=== PATIENT | female | born 1930 | race Caucasian/White ===

== ENCOUNTER → 2016-08-28 | Outpatient (CLI) | payer BC ==
[2016-08-28 13:27] LABS: BASO % 1.2 %; BASO ABS # 0.08 K/uL (0-0.2); COMPLETE YES; EOS % 1.7 %; HEMATOCRIT 38.3 % (37-47); IG% 0.3 %; LYMPH % 37.3 %; LYMPH ABS # 2.48 K/uL (1.2-3.4); MEAN CELL VOLUME 88.7 fL (80-100); MEAN CORPUSCULAR HEMOGLOBIN 30.8 pg (25-34); MEAN CORPUSCULAR HGB CONC 34.7 g/dl (32-36); MEAN PLATELET VOLUME 9.6 fL (7.4-10.4); MONO % 7.7 %; NEUT % 51.8 %; PLATELET COUNT 309 K/uL (130-400); RED BLOOD COUNT 4.32 M/uL (4.2-5.4); WHITE BLOOD COUNT 6.64 K/uL (4.8-10.8)
[2016-08-28 13:52] LABS: BLOOD UREA NITROGEN 15 mg/dl (7-18); CALCIUM 8.9 mg/dl (8.5-10.1); CARBON DIOXIDE 28 mmol/L (21-32); CHLORIDE 102 mmol/L (98-107); CREATININE 0.96 mg/dl (0.60-1.20); GLUCOSE 109 mg/dl (70-99); POTASSIUM 4.1 mmol/L (3.5-5.1); SODIUM 138 mmol/L (136-145)
== END | disposition home or self-care (01) ==
LOC: C.LABPBG 12:09
PROVIDERS: ATTEND Internal Medicine Geriatric Medicine
DX: I10 Essential (primary) hypertension (principal); R73.9 Hyperglycemia, unspecified; R10.9 Unspecified abdominal pain

== ENCOUNTER → 2017-04-02 | Outpatient (CLI) | payer BC ==
[2017-04-02 18:38] LABS: LYME DISEASE AB IGG NEG (NEG); LYME DISEASE AB IGM NEG (NEG)
== END | disposition home or self-care (01) ==
LOC: C.LABPBG 12:18
PROVIDERS: ATTEND Internal Medicine Geriatric Medicine
DX: T14.8XXA Other injury of unspecified body region, initial encounter (principal); W57.XXXA Bitten or stung by nonvenomous insect and other nonvenomous arthropods, initial encounter

== ENCOUNTER 2017-06-08 10:53 | Observation (INO) | payer BC ==
[~2017-06-08] VITALS: Ht 157.5 cm; Wt 65.0 kg
[2017-06-08] MEDS ORDERED: LISI-461 PO (11:03)
[2017-06-08] MEDS ORDERED: MULT-506 PO (11:03)
[2017-06-08] MEDS ORDERED: CHOL2000 PO (11:03)
[2017-06-08] MEDS ORDERED: SODIUM CHLORIDE 0.9% 1000ML 1,000 ML IV STA (11:20)
--- NOTE | 2017-06-08 11:41 | EMERGENCY ROOM VISIT NOTE ---
History Report prepared by Bronson: Coy Ward Under the Supervision of: Dr. Ponce Nuñez M.D. First contact with patient: 10:56 Stated Complaint: NEAR SYNCOPE History of Present Illness The patient is an 86 year old female who presents to the Emergency Room with complaints of an episode of near syncope occurring this morning. Per daughter, the patient has had a respiratory infection for the past week. She notes that the patient was feeling better two days ago, but began to feel sick again yesterday and became weak, had diarrhea, a cough, and a decrease in her appetite. She reports that the patient became weak again this morning following a bowel movement. She states that she did not appear to pass out completely, but seemed to be nearly unconscious. She notes that she had to lift the patient from the toilet to lay her down on the bed. She reports that the patient was responsive shorty following the episode but was mumbling her words. She also complains of congestion, neck pain, back discomfort, a mild fever, and a slight headache. The patient denies any chest pain, bloody or black stool, abdominal pain, vision changes, and recent antibiotic use. The patient states that she has a history of high blood pressure. Source of History: patient, family Onset: this morning Position: other (global) Quality: other (near syncope) Timing: other (an episode) Associated Symptoms: + fevers (mild), + headache (slight), + cough, + neck pain, + diarrhea, + weakness, No chest pain, No abdominal pain Note: The patient also had a decrease in her appetite, congestion, and back discomfort. She denies any bloody or black stool and recent vision changes. Review of Systems See HPI for pertinent positives & negatives. A total of 10 systems reviewed and were otherwise negative. Past Medical & Surgical Medical Problems: (1) Hypertension (2) Respiratory infection Old medical records were reviewed. Nurse's notes were reviewed and I agree with. Family History No pertinent family history stated. Social History Marital Status: Housing Status: lives with family Occupation Status: retired Current/Historical Medications Scheduled Cholecalciferol (Vitamin D3), 3 CAP PO DAILY Lisinopril (Zestril), 10 MG PO DAILY Multivitamin (Multivitamin), 1 TAB PO DAILY Allergies Coded Allergies: Cephalexin (Unverified Allergy, Severe, RASH, 06/08/17) Aspirin (Unverified Allergy, Intermediate, CONGESTION, S.O.B, 06/08/17) Ibuprofen (Unverified Allergy, Intermediate, CONGESTION, S.O.B, 06/08/17) Physical Exam Vital Signs Date Time Temp Pulse Resp B/P (MAP) Pulse Ox O2 Delivery O2 Flow Rate FiO2 06/08/17 13:29 99 06/08/17 13:00 99 20 140/87 97 Room Air 06/08/17 11:07 109 06/08/17 11:00 36.7 116 20 161/82 95 Room Air 06/08/17 11:00 95 Room Air Physical Exam General: Non-ill appearing 86 year old female in no acute distress. Mildly hard of hearing. HEENT: Normal cephalic atraumatic. Pupils are equal round and reactive to light. Extraocular movements are intact. Oropharynx is pink with moist mucous membranes. No swelling of the mouth lips or tongue. Neck: Supple with a midline trachea. No meningeal signs or stiffness, no JVD or bruits. No Stridor. Chest: Clear to auscultation bilaterally. No wheezes or rhonchi. No increased work of breathing. Heart: regular rate and rhythm. Abdomen: Soft nontender, nondistended without rebound guarding or rigidity. Extremities: No cyanosis clubbing or edema. No calf tenderness or assymetry Spine/Back. Non tender to palpation. No CVA tenderness Skin: Good turgor without rashes. Neurologic exam: Cranial nerves two through 12 are intact. Motor and sensation are intact and symmetrical throughout. Medical Decision & Procedures ER Provider Diagnostic Interpretation: Radiology results as stated below per my review and radiologist interpretation: CHEST ONE VIEW PORTABLE FINDINGS: The lungs are clear. Cardiac silhouette is normal in size. No pleural effusions. No pneumothorax. IMPRESSION: No acute process. Electronically signed by: Fernando Tyler M.D. 06/08/2017 11:[address] NONCONTRAST Findings: Fluid levels within the ethmoid air cells and left maxillary sinus. Opacification the right maxillary sinus which is partially visualized. The mastoid air cells are clear. The calvarium and skull base are intact. There is no mass, hematoma, midline shift, acute infarct. White matter hypodensity is nonspecific but suggestive of microvascular ischemic change. The ventricles and sulci demonstrate mild age-related involutional changes. Impression: No acute intracranial abnormality. Atrophy and microvascular ischemic changes. Sinus disease as described above. Electronically signed by: Fernando Tyler M.D. 06/08/2017 12:19 PM Laboratory Results 06/08/17 11:11 Red Blood Count 4.78, Mean Corpuscular Volume 87.4, Mean Corpuscular Hemoglobin 30.1, Mean Corpuscular Hemoglobin Concent 34.4, Mean Platelet Volume 10.0, Neutrophils (%) (Auto) 44.1, Lymphocytes (%) (Auto) 45.1, Monocytes (%) (Auto) 9.1, Eosinophils (%) (Auto) 0.9, Basophils (%) (Auto) 0.6, Neutrophils # (Auto) 2.36, Lymphocytes # (Auto) 2.42, Monocytes # (Auto) 0.49, Eosinophils # (Auto) 0.05, Basophils # (Auto) 0.03 06/08/17 11:11 Test 06/08/17 11:11 06/08/17 11:25 06/08/17 11:36 06/08/17 11:47 White Blood Count 5.36 K/uL (4.8-10.8) Red Blood Count 4.78 M/uL (4.2-5.4) Hemoglobin 14.4 g/dL (12.0-16.0) Hematocrit 41.8 % (37-47) Mean Corpuscular Volume 87.4 fL (80-100) Mean Corpuscular Hemoglobin 30.1 pg (25-34) Mean Corpuscular Hemoglobin Concent 34.4 g/dl (32-36) Platelet Count 174 K/uL (130-400) Mean Platelet Volume 10.0 fL (7.4-10.4) Neutrophils (%) (Auto) 44.1 % Lymphocytes (%) (Auto) 45.1 % Monocytes (%) (Auto) 9.1 % Eosinophils (%) (Auto) 0.9 % Basophils (%) (Auto) 0.6 % Neutrophils # (Auto) 2.36 K/uL (1.4-6.5) Lymphocytes # (Auto) 2.42 K/uL (1.2-3.4) Monocytes # (Auto) 0.49 K/uL (0.11-0.59) Eosinophils # (Auto) 0.05 K/uL (0-0.5) Basophils # (Auto) 0.03 K/uL (0-0.2) RDW Standard Deviation 42.6 fL (36.4-46.3) RDW Coefficient of Variation 13.3 % (11.5-14.5) Immature Granulocyte % (Auto) 0.2 % Immature Granulocyte # (Auto) 0.01 K/uL (0.00-0.02) Anion Gap 10.0 mmol/L (3-11) Est Creatinine Clear Calc Drug Dose 41.3 ml/min Estimated GFR () 70.9 Estimated GFR (Non- 61.2 BUN/Creatinine Ratio 15.3 (10-20) Calcium Level 8.5 mg/dl (8.5-10.1) Total Bilirubin 0.4 mg/dl (0.2-1) Direct Bilirubin 0.1 mg/dl (0-0.2) Aspartate Amino Transf (AST/SGOT) 25 U/L (15-37) Alanine Aminotransferase (ALT/SGPT) 28 U/L (12-78) Alkaline Phosphatase 51 U/L (45-117) Total Creatine Kinase 58 U/L (26-192) Creatine Kinase MB 1.2 ng/ml (0.5-3.6) Creatine Kinase MB Ratio 2.1 (0-3.0) Total Protein 7.1 gm/dl (6.4-8.2) Albumin 3.2 gm/dl (3.4-5.0) Lipase 161 U/L (73-393) Thyroid Stimulating Hormone (TSH) 3.580 uIu/ml (0.300-4.500) Influenza Type A Antigen Neg for Influ A (NEG) Influenza Type B Antigen Neg for Influ B (NEG) Bedside Troponin I < 0.030 ng/ml (0-0.045) Bedside Lactic Acid Venous 1.29 mmol/L (0.90-1.70) Laboratory studies as stated above per my review. Medications Administered Medications (Trade) Dose Ordered Sig/Tito Route Start Time Stop Time Status Last Admin Dose Admin Sodium Chloride 1,000 ml @ 999 mls/hr Q1H1M STAT IV 06/08/17 11:20 06/08/17 12:20 DC 06/08/17 11:58 999 MLS/HR Metoprolol Tartrate (Lopressor Tab) 25 mg 1331 ONCE PO 06/08/17 13:31 06/08/17 14:54 DC 06/08/17 15:05 25 MG ECG Indication: syncope Rate (beats per minute): 96 Rhythm: atrial fibrillation Findings: no acute ischemic change, other (septal infarct pattern) Comparison ECG Date: no prior available ED Course 1101: Past medical records reviewed. The patient was evaluated in room C6, and a complete history and physical examination were performed. 1120: Sodium Chloride 1000 ml @ 999 mls/hr IV 1227: Upon reevaluation, the patient is stable. I discussed the results and treatment plan with the patient. She verbalized agreement of the treatment plan. The patient will be evaluated for further management. 1228: I reevaluated and updated the patient. She is resting comfortably. Medical Decision Differential diagnoses include: infection, arrhythmia, electrolyte/metabolic abnormality, neurologic process, and dehydration. This patient comes in as described above. She suffered a syncopal event. She has had URI type symptoms and diarrhea off and on for couple days and daughter found her passed out on the commode. She was minimally responsive for some time and then woke up she says she feels better now and denies any chest pain. IV access established and she was given 1 L IV normal saline bolus. Chest x- ray was unremarkable does not show pneumonia or pneumothorax. Head CT does not show any acute findings. Her blood work is unremarkable. She's had no elevation lactic acid her white count to suggest sepsis. Stool and urine are pending. She does have atrial fibrillation which is rate controlled and apparently new. I talked to family at length and they do not recall any history of this. Given the new onset A. fib and the syncopal episode, I do think she needs to be admitted/observed for for further treatment and evaluation. I have consulted the [facility] hospitalist group to see her in the ER for these measures. Medication Reconcilliation Current Medication List: was personally reviewed by me Blood Pressure Screening Patient's blood pressure: Elevated blood pressure Referred to hospitalist. Consults Time Called: 1225 Consulting Physician: Dr. Gonzales - [place] [facility] [place]ed Call: 1227 Discussed the patient's case. The patient will be evaluated for further management. Impression Primary Impression: Syncope Additional Impression: New onset a-fib Scribe Attestation The scribe's documentation has been prepared under my direction and personally reviewed by me in its entirety. I confirm that the note above accurately reflects all work, treatment, procedures, and medical decision making performed by me. Departure Information Dispostion Being Evaluated By Hospitalist Referrals Ulysses Price M.D. (PCP) Problem Qualifiers
--- NOTE | 2017-06-08 11:42 | DIAGNOSTIC IMAGING REPORT ---
CHEST ONE VIEW PORTABLE HISTORY: Atypical CHEST PAIN COMPARISON: None. FINDINGS: The lungs are clear. Cardiac silhouette is normal in size. No pleural effusions. No pneumothorax. IMPRESSION: No acute process. Electronically signed by: Fernando Tyler M.D. 06/08/2017 11:40 AM Dictated Date/Time: 06/08/2017 11:36 AM
[2017-06-08 11:44] LABS: BASO % 0.6 %; BASO ABS # 0.03 K/uL (0-0.2); COMPLETE YES; EOS % 0.9 %; HEMATOCRIT 41.8 % (37-47); IG% 0.2 %; LYMPH % 45.1 %; LYMPH ABS # 2.42 K/uL (1.2-3.4); MEAN CELL VOLUME 87.4 fL (80-100); MEAN CORPUSCULAR HEMOGLOBIN 30.1 pg (25-34); MEAN CORPUSCULAR HGB CONC 34.4 g/dl (32-36); MONO % 9.1 %; NEUT % 44.1 %; PLATELET COUNT 174 K/uL (130-400); RED BLOOD COUNT 4.78 M/uL (4.2-5.4); WHITE BLOOD COUNT 5.36 K/uL (4.8-10.8)
[2017-06-08 12:02] LABS: BUN/CREATININE RATIO 15.3 (10-20); CALCIUM 8.5 mg/dl (8.5-10.1); CREATININE 0.85 mg/dl (0.60-1.20); POTASSIUM 3.6 mmol/L (3.5-5.1)
[2017-06-08 12:11] LABS: CKMB/CK RATIO 2.1 (0-3.0)
--- NOTE | 2017-06-08 12:21 | DIAGNOSTIC IMAGING REPORT ---
HEAD CT NONCONTRAST CT DOSE: 537.48 mGy.cm HISTORY: weakness, syncope TECHNIQUE: Multiaxial CT images of the head were performed without the use of intravenous contrast. Automated exposure control was utilized for this study. A dose lowering technique was utilized adhering to the principles of ALARA. Comparison: None. Findings: Fluid levels within the ethmoid air cells and left maxillary sinus. Opacification the right maxillary sinus which is partially visualized. The mastoid air cells are clear. The calvarium and skull base are intact. There is no mass, hematoma, midline shift, acute infarct. White matter hypodensity is nonspecific but suggestive of microvascular ischemic change. The ventricles and sulci demonstrate mild age-related involutional changes. Impression: No acute intracranial abnormality. Atrophy and microvascular ischemic changes. Sinus disease as described above. Electronically signed by: Fernando Tyler M.D. 06/08/2017 12:19 PM Dictated Date/Time: 06/08/2017 12:14 PM
[2017-06-08 13:15] LABS: THYROID STIMULATING HORMONE 3.58 uIu/ml (0.300-4.500)
[2017-06-08] MEDS ORDERED: METOPROLOL TARTRATE 50 MG TAB PO ONE (13:31)
[2017-06-08] MEDS ORDERED: ACETAMINOPHEN 325 MG TAB PO PRN (13:45)
[2017-06-08] MEDS ORDERED: POLYETHYLENE (MIRALAX) 17 GM PACK PO PRN (13:45)
[2017-06-08] MEDS ORDERED: ONDANSETRON INJ 2 MG/ML 2 ML VIAL IV PRN (13:45)
[2017-06-08] MEDS ORDERED: ALUMINUM/MAGNESIUM/SIMETH (MAALOX MAX) 30 ML UDC PO PRN (13:45)
[2017-06-08] MEDS ORDERED: MAGNESIUM HYDROXIDE SUSP 30 ML UDC PO PRN (13:45)
--- NOTE | 2017-06-08 13:57 | History and Physical ---
History & Physical Date & Time of Service: Jun 08, 2017 at 13:45 Chief Complaint: Near Syncope Primary Care Physician: Ulysses Price M.D. History of Present Illness Source: patient, family Ms. Orozco is an 86 y/o female with PMHx of HTN, HLD, Hyperglycemia (Diet Managed), and Vit D Deficiency who presents to the ED c/o a syncopal episode starting this AM. She has had URI symptoms including nasal congestion, cough, fever/chills, and diarrhea that has been improving over the past week. Two days ago she reports she was feeling better and daughter states her energy was good and was able to go to doctor appointments and get simple chores done. Yesterday she reports sudden onset of generalized weakness. Patient feels her URI symptoms are still improving but just feels weak. She has not had much of an appetite and states this has been going on awhile due to poor dentition and not being able to wear her partial to chew. She is due to see her dentist in June for multiple teeth extraction. This AM, patient went to the bathroom to move her bowels and her daughter found her conscious but out of it and mumbling her words. Patient is able to recall the events leading up to this and does not feel that she had complete LOC. Daughter states she helped her to the bed and remained responsive. In the ED, patient is afebrile and without leukocytosis. Head CT and CXR unremarkable. Does have tenderness to palpation of L > R maxillary sinuses. EKG reveals new onset A Fib with rates varying between 90-110. Discussed the diagnosis and planned treatment. Patient states she does NOT want a blood thinner but would be willing to discuss options and get more information. Agreeing to utilize therapeutic Lovenox in the interim until final decision made. Is agreeing to utilize medication to control rate and hopefully allow rhythm to convert spontaneously. Would like to see cardiology to discuss further monitoring and management. Past Medical/Surgical History 1. HTN 2. Osteoarthritis 3. Vitamin D Deficiency 4. Hyperglycemia - Diet/Exercise Managed 5. HLD - Diet/Exercise Managed 6. Familial Tremor 7. IBS-D 8. Diverticulosis 9. S/P Cholecystectomy 10. S/P Appendectomy Family History Heart Disease Social History Smoking Status: Never Smoker Smokeless Tobacco Use: No Alcohol Use: none Drug Use: none Marital Status: Housing status: lives with family Occupational Status: retired Multi-Drug Resistant Organisms History of MDRO: No Allergies Coded Allergies: Cephalexin (Unverified Allergy, Severe, RASH, 06/08/17) Aspirin (Unverified Allergy, Intermediate, CONGESTION, S.O.B, 06/08/17) Ibuprofen (Unverified Allergy, Intermediate, CONGESTION, S.O.B, 06/08/17) Home Medications Scheduled Cholecalciferol (Vitamin D3), 3 CAP PO DAILY Lisinopril (Zestril), 10 MG PO DAILY Multivitamin (Multivitamin), 1 TAB PO DAILY Review of Systems Constitutional: + chills (approx. 1 week ago - RESOLVED), + weakness ( generalized), No fever Eyes: + discharge (watery eyes - IMPROVING), No diplopia ENT: + nasal symptoms (congestion), + dental problems (lower teeth chipping and breaking - unable to use partial), + problem reported (facial pressure with R>L; post-nasal drip), No sore throat Respiratory: + cough, + sputum (yellow), No shortness of breath Cardiovascular: No chest pain, No palpitations Abdomen: + diarrhea, No pain, No nausea, No vomiting, No constipation, No GI bleeding Musculoskeletal: No swelling, No calf pain Genitourinary - Female: No dysuria, No urinary frequency Hematologic / Lymphatic: No abnormal bleeding/bruising, No clotting problems Integumentary: No rash Physical Exam Vital Signs Date Time Temp Pulse Resp B/P (MAP) Pulse Ox O2 Delivery O2 Flow Rate FiO2 06/08/17 13:29 99 06/08/17 13:00 99 20 140/87 97 Room Air 06/08/17 11:07 109 06/08/17 11:00 36.7 116 20 161/82 95 Room Air 06/08/17 11:00 95 Room Air General Appearance: WD/WN, no apparent distress Head: normocephalic, atraumatic Eyes: sclerae normal ENT: hearing grossly normal, pharynx normal, + pertinent finding (dentures to upper teeth; poor dentition of lower teeth with chips and missing teeth but gums without erythema; oral mucose dry) Neck: supple, no JVD, trachea midline Respiratory/Chest: lungs clear, normal breath sounds, no respiratory distress, no accessory muscle use Cardiovascular: + systolic murmur (possible faint systolic heard loudest at [place]), + irregularly irregular Abdomen/GI: normal bowel sounds, non tender, soft Extremities/Musculoskelatal: no calf tenderness, no pedal edema Neurologic/Psych: alert, oriented x 3 Skin: normal color, warm/dry, + pertinent finding (skin is very thin) Diagnostics Laboratory Results Results Past 24 Hours Test 06/08/17 11:11 06/08/17 11:20 06/08/17 11:36 06/08/17 11:47 Range/Units White Blood Count 5.36 4.8-10.8 K/uL Red Blood Count 4.78 4.2-5.4 M/uL Hemoglobin 14.4 12.0-16.0 g/dL Hematocrit 41.8 37-47 % Mean Corpuscular Volume 87.4 80-100 fL Mean Corpuscular Hemoglobin 30.1 25-34 pg Mean Corpuscular Hemoglobin Concent 34.4 32-36 g/dl Platelet Count 174 130-400 K/uL Mean Platelet Volume 10.0 7.4-10.4 fL Neutrophils (%) (Auto) 44.1 % Lymphocytes (%) (Auto) 45.1 % Monocytes (%) (Auto) 9.1 % Eosinophils (%) (Auto) 0.9 % Basophils (%) (Auto) 0.6 % Neutrophils # (Auto) 2.36 1.4-6.5 K/uL Lymphocytes # (Auto) 2.42 1.2-3.4 K/uL Monocytes # (Auto) 0.49 0.11-0.59 K/uL Eosinophils # (Auto) 0.05 0-0.5 K/uL Basophils # (Auto) 0.03 0-0.2 K/uL RDW Standard Deviation 42.6 36.4-46.3 fL RDW Coefficient of Variation 13.3 11.5-14.5 % Immature Granulocyte % (Auto) 0.2 % Immature Granulocyte # (Auto) 0.01 0.00-0.02 K/uL Sodium Level 133 136-145 mmol/L Potassium Level 3.6 3.5-5.1 mmol/L Chloride Level 99 98-107 mmol/L Carbon Dioxide Level 24 21-32 mmol/L Anion Gap 10.0 3-11 mmol/L Blood Urea Nitrogen 13 7-18 mg/dl Creatinine 0.85 0.60-1.20 mg/dl Est Creatinine Clear Calc Drug Dose 41.3 ml/min Estimated GFR () 70.9 Estimated GFR (Non- 61.2 BUN/Creatinine Ratio 15.3 10-20 Random Glucose 112 70-99 mg/dl Calcium Level 8.5 8.5-10.1 mg/dl Total Bilirubin 0.4 0.2-1 mg/dl Direct Bilirubin 0.1 0-0.2 mg/dl Aspartate Amino Transf (AST/SGOT) 25 15-37 U/L Alanine Aminotransferase (ALT/SGPT) 28 12-78 U/L Alkaline Phosphatase 51 45-117 U/L Total Creatine Kinase 58 26-192 U/L Creatine Kinase MB 1.2 0.5-3.6 ng/ml Creatine Kinase MB Ratio 2.1 0-3.0 Total Protein 7.1 6.4-8.2 gm/dl Albumin 3.2 3.4-5.0 gm/dl Lipase 161 73-393 U/L Thyroid Stimulating Hormone (TSH) 3.580 0.300-4.500 uIu/ml Bedside Troponin I < 0.030 0-0.045 ng/ml Bedside Lactic Acid Venous 1.29 0.90-1.70 mmol/L Microbiology Results 06/08/17 Blood Culture, Received Pending 06/08/17 Blood Culture, Received Pending 06/08/17 C.difficile Toxin B Gene (PCR), Ordered Pending Diagnostic Radiology CHEST ONE VIEW PORTABLE FINDINGS: The lungs are clear. Cardiac silhouette is normal in size. No pleural effusions. No pneumothorax. IMPRESSION: No acute process. HEAD CT NONCONTRAST Findings: Fluid levels within the ethmoid air cells and left maxillary sinus. Opacification the right maxillary sinus which is partially visualized. The mastoid air cells are clear. The calvarium and skull base are intact. There is no mass, hematoma, midline shift, acute infarct. White matter hypodensity is nonspecific but suggestive of microvascular ischemic change. The ventricles and sulci demonstrate mild age-related involutional changes. Impression: No acute intracranial abnormality. Atrophy and microvascular ischemic changes. Sinus disease as described above. EKG Atrial fibrillation Septal infarct , age undetermined Abnormal ECG No previous ECGs available Impression Assessment and Plan Ms. Orozco is an 86 y/o female with PMHx of HTN, HLD, Hyperglycemia (Diet Managed), and Vit D Deficiency who presents to the ED c/o a syncopal episode starting this AM. She has had URI symptoms including nasal congestion, cough, fever/chills, and diarrhea that has been improving over the past week. New Onset Atrial Fibrillation: Rate Controlled 90-110s - Other than weakness patient is asymptomatic and no feelings of palpitations - unsure of duration of this rhythm - Mildly reduced Na likely from mild dehydration, all electrolytes stable, TSH WNL, possibly induced by acute viral URI with mild dehydration? - Will admit to telemetry for rhythm monitoring and serial cardiac enzymes - denies CP and low suspicion for ACS - Metoprolol 25 mg BID - Discussed anticoagulation - she does NOT want a blood thinner but is willing to discuss and think about it - agrees to therapeutic Lovenox BID - Obtain echo - Consult cardiology - appreciate further recommendations - establishment for ongoing monitoring Syncope: - Given occurrence with a BM this is likely vasovagal increased with mild dehydration but new onset A Fib noted in ED Mild Hyponatremia: - Due to recent illness and limited oral intake - continue NSS at 80 mL/hr and monitor Sinusitis - Likely Viral: - Reporting symptoms improving - daughter had recent illness as well - will continue to monitor - No need for Abx coverage at this time - Can use saline nasal spray Diarrhea: - Continue to monitor - has H/O IBS and was seen recently by Chencho Agosto - daughter states she was prescribed something to help with this...possibly Bentyl. Can be resumed at D/C - Probiotics HTN: - Will hold Lisinopril with the plan to likely D/C on discharge and cover with Metoprolol Code Status: FULL RESUSCITATION DVT Prophylaxis: Therapeutic Lovenox Disposition: - PT/OT evaluatinos - ambulates independently and lives with daughter Level of Care Telemetry Resuscitation Status FULL RESUSCITATION VTE Prophylaxis VTE Risk Assessment Done? Y/N: Yes Risk Level: Moderate Given or contraindicated: Enoxaparin (Lovenox)SQ
[2017-06-08] MEDS ORDERED: SODIUM CHLORIDE 0.65% NA SOLN 45 ML (OCEAN) PRN (14:00)
[2017-06-08] MEDS ORDERED: IV FLUIDS COMPLETED PRN (14:45)
[2017-06-08 15:37] VITALS: BP 128/83; PULSE 146; TEMP 36.7; O2SAT 98; Ht 157.5 cm; Wt 65.0 kg
[2017-06-08 15:46] LABS: URINE APPEARANCE CLEAR (CLEAR); URINE BILIRUBIN NEG (NEG); URINE COLOR YELLOW; URINE EPITHELIAL CELL AUTO 0-5 /lpf (0-5); URINE NITRITE POS (NEG); URINE SPECIFIC GRAVITY 1.009 (1.000-1.030); UROBILINOGEN NEG (NEG)
[2017-06-08 15:48] LABS: MANUAL MICROSCOPIC REQUIRED? NO; REVIEW REQ? NO
[2017-06-08] MEDS: SODIUM CHLORIDE 0.9% 1000ML 1,000 ML IV SCH (16:40)
[2017-06-08 16:45] VITALS: PULSE 62
[2017-06-08 17:00] VITALS: PULSE 65; PULSE 92
[2017-06-08 17:29] LABS: PARTIAL THROMBOPLASTIN RATIO 1.2; PROTHROMBIN TIME (PATIENT) 10.3 SECONDS (9.0-12.0)
[2017-06-08] MEDS: LACTOBACILLUS ACIDOPHILUS (FLORANEX) TAB PO SCH (17:52)
[2017-06-08] MEDS: ENOXAPARIN 80 MG/0.8 ML SYR SQ SCH (17:55)
[2017-06-08 19:21] VITALS: BP 109/67; PULSE 67; TEMP 36.8; O2SAT 96
[2017-06-08] MEDS: METOPROLOL TARTRATE 50 MG TAB PO SCH (20:22)
[2017-06-09 00:49] VITALS: BP 132/74; PULSE 63; TEMP 37.1; O2SAT 95
[2017-06-09 03:49] VITALS: BP 111/57; PULSE 60; TEMP 37.2; O2SAT 97
[2017-06-09] MEDS: SODIUM CHLORIDE 0.9% 1000ML 1,000 ML IV SCH (03:49)
[2017-06-09] MEDS: ENOXAPARIN 80 MG/0.8 ML SYR SQ SCH (05:02)
[2017-06-09 06:54] LABS: HEMATOCRIT 33.4 % (37-47); MEAN CELL VOLUME 87.2 fL (80-100); MEAN CORPUSCULAR HGB CONC 34.4 g/dl (32-36); MEAN PLATELET VOLUME 9.5 fL (7.4-10.4); PLATELET COUNT 159 K/uL (130-400); RED BLOOD COUNT 3.83 M/uL (4.2-5.4); WHITE BLOOD COUNT 5.21 K/uL (4.8-10.8)
[2017-06-09 07:11] LABS: BUN/CREATININE RATIO 17.5 (10-20); CALCIUM 7.5 mg/dl (8.5-10.1); CREATININE 0.66 mg/dl (0.60-1.20); POTASSIUM 3.5 mmol/L (3.5-5.1)
[2017-06-09 07:37] VITALS: BP 155/66; PULSE 64; TEMP 36.9; O2SAT 98
[2017-06-09 07:51] LABS: COMPLETE YES; LYMPH ABS # 1.35 K/uL (1.2-3.4); SMUDGE CELLS PRESENT; VARIANT LYM ABS # 1.93 K/uL
[2017-06-09] MEDS ORDERED: LEVOFLOXACIN / D5W 500 MG in PREMIXED IN D5W 100 ML IV SCH (08:00)
--- NOTE | 2017-06-09 08:16 | ECHOCARDIOGRAM REPORT ---
*NOTICE TO RECEIVING DEMOCRAT AGENCY This information is strictly Confidential and protected under [place] law. [place] law prohibits you from making any further disclosure of this information unless further disclosure is expressly permitted by the written consent of the person to whom it pertains or is authorized by law. A general authorization for the release of medical or other information is not sufficient for this purpose. Hospital accepts no responsibility if the information is made available to any other person, INCLUDING THE PATIENT. Interpretation Summary * Name: YESSICA PAREDES I Study Date: 06/08/2017 02:10 PM BP: 140/87 mmHg * Patient Location: [facility] HR: 94 * : 1930 (M/d/yyyy) Gender: Female Height: 62 in * Age: 86 yrs Ethnicity: [place] Weight: 149 lb * Ordering Physician: Ligia Gonzales * Referring Physician: Self, Referred * Performed By: Kay Pond RCS * * Reason For Study: A-FIB / SYNCOPE * BSA: 1.7 m2 * -- Conclusions -- * 1. Normal left ventricular size with hyperdynamic systolic function. EF > 70%. No regional wall motion abnormalities. Mild to moderate concentric left ventricular hypertrophy. * 2. The left atrium is mildly dilated. * 3. Aortic valve sclerosis mild, without significant aortic valvular stenosis. Trace aortic regurgitation. * 4. Systolic anterior motion of the mitral leaflet with mild mild regurgitation. * 5. Normal estimated right ventricular systolic pressure; 26 mmHg. * 6. No prior study available for comparison. Procedure Details * A complete two-dimensional transthoracic echocardiogram was performed (2D, M-mode, Doppler and color flow Doppler). Left Ventricle * Normal left ventricular size with hyperdynamic systolic function. EF > 70%. No regional wall motion abnormalities. Mild to moderate concentric left ventricular hypertrophy. Right Ventricle * The right ventricle is normal in size and function. Atria * The left atrium is mildly dilated. * Right atrial size is normal. * There is no evidence of atrial septal defect, but resolution does not allow assessment for a patent foramen ovale. Mitral Valve * There is moderate mitral annular calcification. * There is no mitral valve stenosis. * No significant LVOT obstruction. * Systolic anterior motion of the mitral leaflet with mild mild regurgitation. Tricuspid Valve * The tricuspid valve is normal. * There is no tricuspid stenosis. * There is trace tricuspid regurgitation. Aortic Valve * The aortic valve is trileaflet. * Aortic valve sclerosis mild, without significant aortic valvular stenosis. * Trace aortic regurgitation. Pulmonic Valve * The pulmonary valve is inadequately visualized, but the Doppler data is adequate for interpretation. * There is no pulmonic valvular stenosis. * Trace pulmonic valvular regurgitation. Great Vessels * The aortic root is normal size. Pericardium/Pleural * There is no pericardial effusion. Great Vessels * Normal inferior vena cava size and collapsability with sniff indicates a normal right atrial pressure of 3 mmHg MMode 2D Measurements and Calculations IVSd 1.4 cm IVSs 1.3 cm LVIDd 3.5 cm LVIDs 2.0 cm LVPWd 1.2 cm LVPWs 0.93 cm IVS/LVPW 1.2 FS 41.6 % EDV(Teich) 51.0 ml ESV(Teich) 13.5 ml EF(Teich) 73.6 % EDV(cubed) 43.0 ml ESV(cubed) 8.6 ml EF(cubed) 80.1 % % IVS thick -4.87 % % LVPW thick -21.55 % LV mass(C)d 149.0 grams LV mass(C)dI 88.3 grams/m\S\2 LV mass(C)s 58.2 grams LV mass(C)sI 34.5 grams/m\S\2 SV(Teich) 37.6 ml SI(Teich) 22.3 ml/m\S\2 SV(cubed) 34.5 ml SI(cubed) 20.4 ml/m\S\2 Ao root diam 2.7 cm Ao root area 5.5 cm\S\2 LVOT diam 1.8 cm LVOT area 2.6 cm\S\2 Doppler Measurements and Calculations MV E max jase 132.7 cm/sec MV P1/2t max jase 155.3 cm/sec MV P1/2t 74.0 msec MVA(P1/2t) 3.0 cm\S\2 MV dec slope 614.3 cm/sec\S\2 MV dec time 0.28 sec Ao V2 max 174.5 cm/sec Ao max PG 12.3 mmHg Ao max PG (full) 1.6 mmHg JOSEFINA(V,A) 2.5 cm\S\2 JOSEFINA(V,D) 2.5 cm\S\2 AI max jase 401.6 cm/sec AI max PG 64.5 mmHg AI dec slope 185.8 cm/sec\S\2 AI P1/2t 633.1 msec LV V1 max PG 10.6 mmHg LV V1 max 162.1 cm/sec MR max jase 623.1 cm/sec MR max PG 156.4 mmHg TR max jase 241.6 cm/sec RVSP(TR) 26.3 mmHg RAP systole 3.0 mmHg
[2017-06-09] MEDS ORDERED: MULTIVITAMIN TAB PO SCH (09:00)
[2017-06-09] MEDS ORDERED: CHOLECALCIFEROL 1000 INTER.UNIT TAB PO SCH (09:00)
[2017-06-09] MEDS: LACTOBACILLUS ACIDOPHILUS (FLORANEX) TAB PO SCH ×2 (09:59→11:30)
[2017-06-09] MEDS: METOPROLOL TARTRATE 50 MG TAB PO SCH (10:00)
[2017-06-09 11:02] VITALS: BP 174/69; PULSE 65; TEMP 36.8; O2SAT 97
--- NOTE | 2017-06-09 11:59 | CARDIOLOGY CONSULTATION ---
DATE OF CONSULTATION: 06/09/2017 TIME: 11:16 a.m. CONSULTING PHYSICIAN: Dr. Arevalo. REASON FOR CONSULTATION: AFib and near syncopal episode. HISTORY OF PRESENT ILLNESS: Ms. Orozco is a pleasant 86-year-old female with a history significant for hypertension and dyslipidemia, who presented to [facility] on 06/08/2017 with a near syncopal episode. She was incidentally found at that time to be in atrial fibrillation with the heart rate of 97 beats per minute on presenting ECG. She apparently has been experiencing sinusitis type symptoms approximately 1 week ago, including nasal congestion, cough, fevers and chills and daily diarrhea. Two days prior to presentation, she started feeling better until yesterday when she had generalized weakness. She lost a tooth approximately 3 months ago and therefore has not been eating or drinking much. She feels as though she has been getting weaker with decreased appetite, stating that things just do not pace right. She then went to use the restroom to move her bowels and her daughter found her apparently awake, but not exactly with it and she apparently does not recall the event itself. Her son, Kaiser, is present today, recalling his sister's report of yesterday's deep events. The patient apparently did not lose consciousness completely, but was not altogether with it from a mental standpoint during this episode. Today, she feels much better and would like to go home. She was found to be in atrial fibrillation and has undergone an echocardiogram. She does not recall any palpitations yesterday and she spontaneously converted yesterday at 16:44 p.m. She does not recall feeling any different when she spontaneously converted. She does recall having palpitation, described as a fluttering sensation that has occurred intermittently over time, but nothing sustained. She denies melena, hematochezia, hematuria, or other bleeding. She denies chest pain, shortness of breath, actual syncope or history of strokes/TIA. She denies heart failure, diabetes, or atherosclerotic disease. REVIEW OF SYSTEMS: As above and review of systems otherwise unremarkable/negative. PAST MEDICAL HISTORY: 1. Hypertension. 2. Hyperglycemia, but no diabetes. 3. Dyslipidemia. 4. Tremor. 5. IBS. 6. Vitamin D deficiency. 7. Osteoarthritis. 8. Diverticulosis. 9. Status post cholecystectomy. 10. Status post appendectomy. HOME MEDICATIONS: Include, 1. Lisinopril 5 mg daily. 2. Multivitamin. 3. Vitamin D. INPATIENT MEDICATIONS: Include, 1. Lovenox 70 mg subQ q. 12 hours. 2. Levofloxacin 500 mg IV q. 24 hours. 3. Metoprolol tartrate 25 mg p.o. b.i.d. 4. Normal saline 1 liter bolus followed by 80 mL per hour. ALLERGIES AND INTOLERANCES: CEPHALEXIN RESULTED IN RASH. ASPIRIN CAUSED CONGESTION/SHORTNESS OF BREATH. IBUPROFEN CAUSED DIZZINESS. SOCIAL HISTORY: Denies tobacco or alcohol abuse. She is a . She lives with her daughter, who is a local chiropractor. Her son, Kaiser is present at bedside along with her grandson. She has 2 children in total. FAMILY HISTORY: Her son had CAD with PCI diagnosed in his 50s. PHYSICAL EXAMINATION: VITAL SIGNS: Temperature 36.8 degrees, heart rate 65 beats per minute, respiratory rate 18, and blood pressure 174/69 mmHg, which is the highest blood pressure throughout her hospitalization up to this point. She has mostly been normotensive. Oxygen saturation is 97% on room air. Weight 65 kg. GENERAL: No acute distress. She is alert and oriented. HEENT: Anicteric sclerae. NECK: No appreciable JVD. No bruits. Normal carotid upstrokes bilaterally. CARDIAC EXAMINATION: PMI was nonpalpable. There was no ventricular heave. Regular, normal S1 and S2. 2/6 early peaking systolic ejection murmur best heard at the right upper sternal border. No rubs or gallops. LUNGS: Clear to auscultation bilaterally without wheezes, rales or rhonchi. ABDOMEN: Soft, nontender, and nondistended. Normoactive bowel sounds. No bruits noted. EXTREMITIES: 2+ radial pulses bilaterally. 2+ dorsalis pedis pulses bilaterally. Trace bilateral lower extremity edema with varicose veins. No palpable cords. No cyanosis. PSYCHIATRIC: Affect appears appropriate. LABORATORY DATA: White blood cell count is 5.21, hemoglobin 11.5, and platelets 159. Sodium 133, potassium 3.5, BUN 12, creatinine 0.66, and magnesium 2. TSH 3.58. Peak troponin 0.048. INR is 1. Urine culture positive for E. coli. Sensitivities are still pending. Head CT report reviewed. No acute intracranial abnormality. Chest x-ray report reviewed. No acute process reported as per radiology. Chest x-ray image personally reviewed. No obvious infiltrate. Echocardiogram reviewed from 06/09/2017: Normal LV size with hyperdynamic systolic function. EF is greater than 70%. Normal wall motion. Mild to moderate LVH. Mild left atrial dilation. Sclerotic aortic valve with trace AI. Systolic anterior motion of mitral leaflet with mild MR. No significant LVOT obstruction. RVSP is 26 mmHg. Telemetry personally reviewed. Currently sinus rhythm after converting from atrial fibrillation at 16:44 p.m. ECG upon presentation personally reviewed, demonstrating atrial fibrillation at 97 beats per minute. Septal infarct. ECG this morning at 06:40 a.m. demonstrated sinus rhythm at 65 beats per minute. ASSESSMENT AND PLAN: 1. Paroxysmal atrial fibrillation: She appears to be asymptomatic in this regard. She spontaneously converted to sinus rhythm. Her heart rate was reasonably well controlled upon presentation. I agree with beta regine for rate control for recurrences. We discussed anticoagulation for stroke risk reduction in detail. She does have an elevated CHADS-VASc score. She is not interested, but would like to further discuss it with her PCP, Dr. Price. We discussed both warfarin and a new agent. She understands that she has an increased stroke risk if she chooses to abstain from anticoagulation therapy. Would continue rate control strategy for possible future episodes. 2. Mitral valve disorder: She does have systolic anterior motion of mitral leaflet with hyperdynamic systolic function and mild regurgitation. If she would develop hypovolemia and tachycardia with atrial fibrillation, she could potentially develop an obstruction with hemodynamic significance. She did not demonstrate this while in atrial fibrillation during this hospitalization, however. Would continue with beta regine as noted above. Would try to avoid dehydration/hypovolemia. 3. Hypertension: Her blood pressure is becoming more elevated throughout the day. Would consider restarting her JUAN CARLOS inhibitor. We will discuss this with Dr. Levi, primary hospitalist service. 4. Elevated troponin: Her troponin was only slightly elevated at 0.048. This is not diagnostic of myocardial infarction. It could be related to demand ischemia in the setting of hyperdynamic LV systolic function with atrial fibrillation with mildly elevated heart rates at times also in the setting of urinary tract infection. No ischemic evaluation is recommended at this time. She did not present with acute coronary syndrome and denies any anginal symptoms. 5. Urinary tract infection: Her presentation with weakness and near syncope or change in mental status could be secondary to urinary tract infection. Treatment as per primary service. 6. Disposition: The patient's care has been discussed with Dr. Levi of the primary hospitalist service. Please call for any other questions or concerns. At this time, she plans on following up with Dr. Price and if Dr. Price or she wishes to follow up with cardiology, we would be happy to see her in the outpatient setting. Thank for allowing me to participate in the care of Mr. Orozco. Sincerely,
[2017-06-09] MEDS ORDERED: LCTX PO (12:18)
[2017-06-09] MEDS ORDERED: LEVO500T19 PO (12:18)
[2017-06-09] MEDS ORDERED: METO50TA16 PO (12:18)
--- NOTE | 2017-06-09 12:29 | Discharge Instructions ---
Discharge Instructions Date of Service Jun 09, 2017. Admission Reason for Admission: New Onset Of Afib, Syncope Discharge Discharge Diagnosis / Problem: Urinary Tract Infection and Atrial Fibrillation Discharge Goals Goal(s): Decrease discomfort, Improve function, Increase independence Activity Recommendations Activity Limitations: resume your previous activity . Instructions / Follow-Up Instructions / Follow-Up Atrial Fibrillation: - This is a heart rhythm when the top of your heart "shakes" but the bottom of your heart still pumps out the blood to the rest of your body. This rhythm can increase your risk of a stroke due to the blood pooling at the top of your heart when in this rhythm. - You converted out of this rhythm yesterday and are now in a normal rhythm. However, you would have the possibility of going back into this rhythm in the future. - Recommend to discuss blood thinners with your family doctor to help reduce your risk of stroke - You were started on Metoprolol twice a day - this medication helps control your heart rates but is a blood pressure medication and would recommend to watch your blood pressure - You can continue your Lisinopril daily as well. Urinary Tract Infection: - You will be given an antibiotic to take daily for the next 6 days. You had a dose today on 06/09 so you will need to start this tomorrow 06/10 - Continue your probiotic while on antibiotics. As well a prescription will be given but you can use your probiotics that you have at home as well. Weakness: - This may have been a mix of your near-syncopal episode, dehydration, sinus infection, and UTI - this should resolve over the next few days - Recommend to keep yourself hydrated. The best approach is to monitor your urine as you want it to be light/pale yellow which is a sign of good hydration Follow-Up: - Our Dynamometer Tester will be in contact with you to set up an appointment with Dr. Price Current Hospital Diet Patient's current hospital diet: AHA Diet (Heart Healthy) Discharge Diet Recommended Diet: AHA Diet (Heart Healthy) Pending Studies Studies pending at discharge: yes List of pending studies: Urine culture sensitivities and stool cultures Medical Emergencies . Who to Call and When: Medical Emergencies: If at any time you feel your situation is an emergency, please call 911 immediately. . Non-Emergent Contact Non-Emergency issues call your: Primary Care Provider Call Non-Emergent contact if: you have a fever, your pain is concerning you, you have any medication questions . . "Provider Documentation" section prepared by Ligia Gonzales. . VTE Core Measure Inpt VTE Proph given/why not?: Enoxaparin (Lovenox)SQ
[2017-06-09 12:54] VITALS: BP 174/69; PULSE 65; TEMP 36.8; O2SAT 97
--- NOTE | 2017-06-09 13:27 | Discharge Summary ---
Discharge Summary Date of Service Jun 09, 2017. Discharge Summary Admission Date: Jun 08, 2017 at 13:45 Discharge Date: Jun 09, 2017 Discharge Disposition: Home Principal Diagnosis: Atrial Fibrillation with UTI and URI Problems/Secondary Diagnoses: 1. HTN 2. Osteoarthritis 3. Vitamin D Deficiency 4. Hyperglycemia - Diet/Exercise Managed 5. HLD - Diet/Exercise Managed 6. Familial Tremor 7. IBS-D 8. Diverticulosis 9. S/P Cholecystectomy 10. S/P Appendectomy 11. Mild to moderate concentric left ventricular hypertrophy. 12.Trace aortic regurgitation. 13. mild mild regurgitation Procedures: HEAD CT NONCONTRAST Findings: Fluid levels within the ethmoid air cells and left maxillary sinus. Opacification the right maxillary sinus which is partially visualized. The mastoid air cells are clear. The calvarium and skull base are intact. There is no mass, hematoma, midline shift, acute infarct. White matter hypodensity is nonspecific but suggestive of microvascular ischemic change. The ventricles and sulci demonstrate mild age-related involutional changes. Impression: No acute intracranial abnormality. Atrophy and microvascular ischemic changes. Sinus disease as described above. CHEST ONE VIEW PORTABLE FINDINGS: The lungs are clear. Cardiac silhouette is normal in size. No pleural effusions. No pneumothorax. IMPRESSION: No acute process. ECHO: 1. Normal left ventricular size with hyperdynamic systolic function. EF > 70%. No regional wall motion abnormalities. Mild to moderate concentric left ventricular hypertrophy. * 2. The left atrium is mildly dilated. * 3. Aortic valve sclerosis mild, without significant aortic valvular stenosis. Trace aortic regurgitation. * 4. Systolic anterior motion of the mitral leaflet with mild mild regurgitation. * 5. Normal estimated right ventricular systolic pressure; 26 mmHg. * 6. No prior study available for comparison. Consultations: 1. Cardiology Medication Reconciliation New Medications: Levofloxacin (Levaquin) 500 Mg Tab 1 TAB PO DAILY for 6 Days, #6 TAB You had a dose today on 06/09. Start on 06/10 Lactobacillus Acidophilus (Floranex) 1 Tab Tab 4 TAB PO TIDM for 10 Days, TAB Metoprolol Tartrate (Lopressor) (Lopressor) 50 Mg Tab 25 MG PO BID for 30 Days, #30 TAB Continued Medications: Cholecalciferol (Vitamin D3) 2,000 Unit Cap 3 CAP PO DAILY for 30 Days, #90 CAP 3 Refills Lisinopril (Zestril) 10 Mg Tab 5 MG PO DAILY, TAB Multivitamin (Multivitamin) Tab 1 TAB PO DAILY, TAB Discharge Exam Review of Systems: Constitutional: No fever, No chills, No weakness ENT: + nasal symptoms (improving), No sore throat Respiratory: + cough, + sputum, No shortness of breath Cardiovascular: No chest pain Abdomen: No pain, No nausea, No vomiting, No diarrhea, No constipation, No GI bleeding Musculoskeletal: No swelling, No calf pain Genitourinary - Female: No dysuria, No urinary frequency Hematologic / Lymphatic: No abnormal bleeding/bruising Integumentary: No rash Physical Exam: General Appearance: WD/WN, no apparent distress Eyes: sclerae normal Neck: supple, no JVD, trachea midline Respiratory/Chest: lungs clear, normal breath sounds, no respiratory distress, no accessory muscle use Cardiovascular: regular rate, rhythm Abdomen / GI: normal bowel sounds, non tender, soft Extremities: no calf tenderness, no pedal edema Neurologic/Psychiatric: alert, oriented x 3 Skin: normal color, warm/dry Hospital Course ADMISSION: Ms. Orozco is an 86 y/o female with PMHx of HTN, HLD, Hyperglycemia (Diet Managed), and Vit D Deficiency who presents to the ED c/o a syncopal episode starting this AM. She has had URI symptoms including nasal congestion, cough, fever/chills, and diarrhea that has been improving over the past week. Two days ago she reports she was feeling better and daughter states her energy was good and was able to go to doctor appointments and get simple chores done. Yesterday she reports sudden onset of generalized weakness. Patient feels her URI symptoms are still improving but just feels weak. She has not had much of an appetite and states this has been going on awhile due to poor dentition and not being able to wear her partial to chew. She is due to see her dentist in June for multiple teeth extraction. This AM, patient went to the bathroom to move her bowels and her daughter found her conscious but out of it and mumbling her words. Patient is able to recall the events leading up to this and does not feel that she had complete LOC. Daughter states she helped her to the bed and remained responsive. In the ED, patient is afebrile and without leukocytosis. Head CT and CXR unremarkable. Does have tenderness to palpation of L > R maxillary sinuses. EKG reveals new onset A Fib with rates varying between 90-110. Discussed the diagnosis and planned treatment. Patient states she does NOT want a blood thinner but would be willing to discuss options and get more information. Agreeing to utilize therapeutic Lovenox in the interim until final decision made. Is agreeing to utilize medication to control rate and hopefully allow rhythm to convert spontaneously. Would like to see cardiology to discuss further monitoring and management. HOSPITAL COURSE: Ms. Orozco was admitted for new onset Atrial Fibrillation. She was reporting generalized weakness that may have been A Fib vs Dehydration vs URI vs UTI. She has had no further pre-syncopal episodes which may have been vasovagal. She has an E. coli UTI that is pending sensitivities She converted to NSR on 06/08 around 1645 and has remained in NSR. She was started on Metoprolol 25 mg BID and will continue Lisinopril 5 mg daily. Echo reveals hyperdynamic EF but no mention of apical thrombus. She was started on Levaquin 500 mg daily for UTI and will complete a 7 day course. She is ambulating without difficulty and reporting improvement in generalized weakness. She has opted to not utilize anticoagulation at this time and this was discussed by multiple providers. She would like to discuss anticoagulation with Dr. Price. CHADsVASc is 4+. Total Time Spent: Greater than 30 minutes This includes examination of the patient, discharge planning, medication reconciliation, and communication with other providers. Discharge Instructions Please refer to the electronic Patient Visit Report (Discharge Instructions) for additional information. Additional Copies To Ulysses Price M.D. Reviewed: Pt Seen/Exam by Me History Physician Dye Colorist Dyer Supervision Note: I interviewed and examined the patient. Discussed with SADIA Gonzales and agree with findings and plan as documented in the note. Any exceptions or clarifications are listed here: Patient feeling very well today. She converted spontaneously to normal sinus rhythm overnight and remains in normal sinus rhythm. She no longer feels weak or lightheaded. She has been ambulating and feels well enough to go home. She denies chest pain or shortness of breath. I discussed the case with cardiology saw her today. The patient prefers to discuss anticoagulation with her PCP prior to commencing. She denies abdominal pain, denies any further diarrhea, denies any urinary symptoms that are abnormal. Vitals and telemetry reviewed No acute distress, alert awake oriented 3 Regular rate and rhythm, no murmurs Rubs Lungs Clear to Auscultation Bilaterally, No Wheezes Crackles or Rhonchi Abdomen Positive Bowel Sounds Soft Nontender Nondistended Extremities No Edema 86-year-old female with a history of hypertension, here with new onset atrial fibrillation and near-syncope after recent viral syndrome with URI and GI symptoms. She also presents with a UTI. Her symptoms are now completely resolved with spontaneous conversion to normal sinus rhythm. She was seen in consultation by cardiology and started on metoprolol which can be continued after discharge. She is to follow-up with her PCP to further discuss starting anticoagulation with one of the NOAC drugs. She can follow up with [facility] cardiology if she desires, but otherwise can continue follow-up for these conditions with her PCP. She is stable for discharge to finish out a course of Levaquin. It is noted that her urine culture and final blood cultures were not completed at the time of discharge. She never had any signs of sepsis and it is unlikely that her blood cultures will grow out bacteria. The PCP should please follow up on the final results of these cultures at the time of follow-up. Documented By: Olinda Levi
== END 2017-06-09 15:27 | disposition home or self-care (01) ==
LOC: EDBD 10:53 → C.EDC 10:54 → C.2T 13:45 → ENRESERV 14:12
PROVIDERS: ADMIT Internal Medicine; ATTEND Family Medicine
DX: I48.91 Unspecified atrial fibrillation (principal); N39.0 Urinary tract infection, site not specified; J06.9 Acute upper respiratory infection, unspecified; I10 Essential (primary) hypertension; Z79.899 Other long term (current) drug therapy; E78.5 Hyperlipidemia, unspecified; E55.9 Vitamin D deficiency, unspecified; M19.90 Unspecified osteoarthritis, unspecified site; R73.9 Hyperglycemia, unspecified; G25.0 Essential tremor; K58.9 Irritable bowel syndrome, unspecified; K57.90 Diverticulosis of intestine, part unspecified, without perforation or abscess without bleeding; I51.7 Cardiomegaly; I35.1 Nonrheumatic aortic (valve) insufficiency

== ENCOUNTER 2017-09-23 19:07 | Inpatient (IN) | payer BC, OTHER ==
[~2017-09-23] VITALS: Ht 157.5 cm; Wt 60.9 kg
[~2017-09-23 19:07] MED LIST: CHOL2000 PO; LCTX PO; LISI-461 PO; METO50TA16 PO; MULT-506 PO
[2017-09-23] MEDS ORDERED: TROPICAMIDE 0.5% OP SOLN 15 ML BTL OP ONE (20:00)
[2017-09-23] MEDS ORDERED: OPTIRAY 320 IV PRN (20:15)
[2017-09-23 20:18] LABS: HEMATOCRIT 37.1 % (37-47); HEMOGLOBIN 12.9 g/dL (12.0-16.0); MEAN CELL VOLUME 86.9 fL (80-100); MEAN CORPUSCULAR HEMOGLOBIN 30.2 pg (25-34); MEAN CORPUSCULAR HGB CONC 34.8 g/dl (32-36); MEAN PLATELET VOLUME 9.3 fL (7.4-10.4); PLATELET COUNT 331 K/uL (130-400); RED CELL DISTRIBUTION WIDTH CV 12.9 % (11.5-14.5); RED CELL DISTRIBUTION WIDTH SD 41.4 fL (36.4-46.3)
[2017-09-23 20:41] LABS: ALBUMIN 3.7 gm/dl (3.4-5.0); CALCIUM 8.8 mg/dl (8.5-10.1); CREATININE 0.92 mg/dl (0.60-1.20); POTASSIUM 3.8 mmol/L (3.5-5.1)
[2017-09-23 21:18] LABS: TOTAL PROTEIN 8.1 gm/dl (6.4-8.2)
[2017-09-23] MEDS ORDERED: METHYLPREDNISOLONE 125 MG VIAL IV STA (21:35)
[2017-09-23] MEDS ORDERED: METOPROLOL TARTRATE 25 MG TAB PO STA (21:36)
--- NOTE | 2017-09-23 21:57 | DIAGNOSTIC IMAGING REPORT ---
CT OF THE ABDOMEN AND PELVIS WITH CONTRAST CLINICAL HISTORY: Abdominal pain. COMPARISON STUDY: CT of the abdomen and pelvis September 13, 2015. TECHNIQUE: Following IV administration of 116 mL of Optiray-320, axial images of the abdomen and pelvis were obtained from the lung bases to the proximal femurs. Images were reviewed in the axial, sagittal, and coronal planes. IV contrast was administered without complication. A dose lowering technique was utilized adhering to the principles of ALARA. CT DOSE: 277.97 mGy.cm FINDINGS: The heart is moderately enlarged. The liver, spleen, adrenal glands, kidneys and pancreas are unremarkable. There is extensive atherosclerotic plaque of the abdominal aorta which is ectatic, measuring up to 2.7 cm. No pneumatosis, free air or portal venous gas is present. There is no evidence for a bowel obstruction. There is severe pancolonic diverticulosis. Note is made of mild infiltration and wall thickening of the mid sigmoid colon. There is no free air or abscess. No lymphadenopathy is present. There are no suspicious osseous lesions. IMPRESSION: Mild pericolonic infiltration and wall thickening of the mid descending colon suggestive of acute diverticulitis. No free air or abscess. Severe pancolonic diverticulosis. A follow-up CT in one month is recommended to exclude the less likely possibility of an underlying mucosal lesion. Electronically signed by: Jacob Carr M.D. 09/23/2017 9:56 PM Dictated Date/Time: 09/23/2017 9:50 PM
[2017-09-23] MEDS ORDERED: LISI-729 PO (22:15)
[2017-09-23] MEDS ORDERED: METO25TA56 PO (22:17)
[2017-09-23] MEDS ORDERED: MISCCAP80 PO (22:18)
[2017-09-23] MEDS ORDERED: ASPI81TA28 PO (22:19)
[2017-09-23] MEDS ORDERED: PSYL0.527 PO (22:28)
[2017-09-23] MEDS ORDERED: BUSP5TAB59 PO (22:30)
[2017-09-23] MEDS ORDERED: DICY10CA12 PO (22:32)
[2017-09-23] MEDS ORDERED: ALUMINUM/MAGNESIUM/SIMETH (MAALOX MAX) 30 ML UDC PO PRN (23:00)
[2017-09-23] MEDS ORDERED: NITROGLYCERIN 0.4 MG SL PER TAB CHARGE SL PRN (23:00)
[2017-09-23] MEDS ORDERED: MAGNESIUM HYDROXIDE SUSP 30 ML UDC PO PRN (23:00)
[2017-09-23] MEDS ORDERED: ACETAMINOPHEN 325 MG TAB PO PRN (23:00)
[2017-09-23] MEDS ORDERED: ONDANSETRON 8MG OD TAB PO PRN (23:00)
[2017-09-23] MEDS ORDERED: PIPERACILL/TAZOBAC CONSULT ACTIVE PRN (23:00)
--- NOTE | 2017-09-23 23:01 | History and Physical ---
History & Physical Date & Time of Service: Sep 23, 2017 at 23:01 Chief Complaint: Loss Sight In Left Eye, Stomach Pains Primary Care Physician: Ulysses Price M.D. History of Present Illness Source: patient, family The patient is an 86-year-old female who presents to the emergency department with complaint of sudden loss of vision approximately 10 AM this morning. She also reports left lower quadrant pain similar to diverticulitis episodes in the past as well. She also reports feeling generally unwell, but has no specific complaints otherwise. Past Medical/Surgical History Medical Problems: (1) Afib (2) Diverticulitis (3) Hypertension (4) New onset a-fib (5) NSTEMI, initial episode of care (6) Respiratory infection (7) Syncope (8) Vision loss Surgical Problems: (1) History of cataract surgery Family History Heart Disease Social History Smoking Status: Never Smoker Smokeless Tobacco Use: No Alcohol Use: none Drug Use: none Marital Status: Housing status: lives with family Occupational Status: retired Immunizations History of Influenza Vaccine: Unknown History of Tetanus Vaccine?: Unknown History of Pneumococcal: Unknown History of Hepatitis B Vaccine: Unknown Allergies Coded Allergies: Cephalexin (Unverified Allergy, Severe, RASH, 06/08/17) Ibuprofen (Unverified Allergy, Intermediate, CONGESTION, S.O.B, 06/08/17) Home Medications Scheduled Aspirin (Aspirin Ec), 81 MG PO DAILY Cholecalciferol (Vitamin D3), 6,000 UNITS PO DAILY Dicyclomine Hcl (Dicyclomine Hcl), 10 MG PO BID Lisinopril (Zestril), 5 MG PO DAILY Metoprolol Tartrate (Lopressor) (Lopressor), 25 MG PO BID Multivitamin (Multivitamin), 1 TAB PO DAILY Probiotic Product (Probiotic), 1 CAP PO DAILY Psyllium (Fiber Laxative), 0.52 CAP PO DAILY Scheduled PRN Buspirone Hcl (Buspirone Hcl), 5 MG PO DAILY PRN for Anxiety Review of Systems The patient denies chest pain, palpitations, shortness of breath, dyspnea on exertion, cough, lower extremity swelling, sore throat, fevers, chills, sweats, nausea, vomiting, diarrhea , constipation, abdominal pain, pelvic pain, blood in urine or stool, dysuria, urinary frequency or urgency, lightheadedness , dizziness, loss of consciousness, rash, abnormal bruising or bleeding, focal weakness, numbness or tingling in arms or legs, back or neck pain, or night sweats. The review of systems is otherwise negative other than for that already noted above, and at least 10 systems have been reviewed. Physical Exam Vital Signs Date Time Temp Pulse Resp B/P (MAP) Pulse Ox O2 Delivery O2 Flow Rate FiO2 09/23/17 22:43 75 18 211/90 96 Room Air 09/23/17 20:58 75 18 213/90 97 Room Air 09/23/17 19:20 36.7 77 16 173/82 97 Room Air The patient is awake, alert and oriented 3, well developed and well nourished, normocephalic and atraumatic, lying in bed and in no acute distress. HEENT--PERRL, EOMI, mucous membranes and oropharynx dry. Ophthalmoscopic examination--right eye normal-appearing optic nerve and fundus. Left eye with pale fundus, severely narrowed arterioles. Neck--supple. No JVD. No bruits. Thyroid normal, trachea midline, no adenopathy. Heart--normal S1 and S2. No murmurs, rubs or gallops. Lungs--clear bilaterally, no respiratory distress, no accessory muscle use. Abdomen--normal bowel sounds and soft. Mild tenderness in left lower quadrant. Nondistended. Extremities--no cyanosis or clubbing. No edema. There are good distal pulses b/ l. Dermatologic--normal skin turgor, normal color, no abnormal lymph nodes, no rash. Neurologic--cranial nerves II through XII grossly intact. Rheumatologic--normal range of motion. Psychiatric--normal affect. Diagnostics Laboratory Results Results Past 24 Hours Test 09/23/17 19:55 09/23/17 21:41 Range/Units White Blood Count 10.70 4.8-10.8 K/uL Red Blood Count 4.27 4.2-5.4 M/uL Hemoglobin 12.9 12.0-16.0 g/dL Hematocrit 37.1 37-47 % Mean Corpuscular Volume 86.9 80-100 fL Mean Corpuscular Hemoglobin 30.2 25-34 pg Mean Corpuscular Hemoglobin Concent 34.8 32-36 g/dl RDW Standard Deviation 41.4 36.4-46.3 fL RDW Coefficient of Variation 12.9 11.5-14.5 % Platelet Count 331 130-400 K/uL Mean Platelet Volume 9.3 7.4-10.4 fL Erythrocyte Sedimentation Rate 66 0-21 mm/hr Sodium Level 129 136-145 mmol/L Potassium Level 3.8 3.5-5.1 mmol/L Chloride Level 96 98-107 mmol/L Carbon Dioxide Level 25 21-32 mmol/L Anion Gap 8.0 3-11 mmol/L Blood Urea Nitrogen 13 7-18 mg/dl Creatinine 0.92 0.60-1.20 mg/dl Est Creatinine Clear Calc Drug Dose 36.4 ml/min Estimated GFR () 64.4 Estimated GFR (Non- 55.6 BUN/Creatinine Ratio 14.5 10-20 Random Glucose 94 70-99 mg/dl Calcium Level 8.8 8.5-10.1 mg/dl Total Bilirubin 0.4 0.2-1 mg/dl Direct Bilirubin 0.1 0-0.2 mg/dl Aspartate Amino Transf (AST/SGOT) 24 15-37 U/L Alanine Aminotransferase (ALT/SGPT) 17 12-78 U/L Alkaline Phosphatase 58 45-117 U/L Troponin I 2.490 0-0.045 ng/ml C-Reactive Protein 1.93 0-0.29 mg/dl Total Protein 8.1 6.4-8.2 gm/dl Albumin 3.7 3.4-5.0 gm/dl Lipase 172 73-393 U/L Urine Color YELLOW Urine Appearance CLOUDY CLEAR Urine pH 6.0 4.5-7.5 Urine Specific [place] 1.016 1.000-1.030 Urine Protein NEG NEG Urine Glucose (UA) NEG NEG Urine Ketones NEG NEG Urine Occult Blood NEG NEG Urine Nitrite NEG NEG Urine Bilirubin NEG NEG Urine Urobilinogen NEG NEG Urine Leukocyte Esterase MODERATE NEG Urine WBC (Auto) 5-10 0-5 /hpf Urine RBC (Auto) 0-4 0-4 /hpf Urine Hyaline Casts (Auto) 1-5 0-5 /lpf Urine Epithelial Cells (Auto) 20-30 0-5 /lpf Urine Bacteria (Auto) NEG NEG Diagnostic Radiology Patient Name: YESSICA PAREDES I Unit Number: [id number] Dictated: 09/23/172149 Transcribed: 09/23/172149 JA Printed Date/Time: [~ rep prt dt]/[~ rep prt tm] [~ rep ct labl] - [~ rep ct ivnm] [facility] [place] [address] Dictated: 09/23/172149 Transcribed: 09/23/172149 JA Printed Date/Time: [~ rep prt dt]/[~ rep prt tm] [~ rep ct labl] - [~ rep ct ivnm] [~ rep ct add3]] CT OF THE ABDOMEN AND PELVIS WITH CONTRAST CLINICAL HISTORY: Abdominal pain. COMPARISON STUDY: CT of the abdomen and pelvis September 13, 2015. TECHNIQUE: Following IV administration of 116 mL of Optiray-320, axial images of the abdomen and pelvis were obtained from the lung bases to the proximal femurs. Images were reviewed in the axial, sagittal, and coronal planes. IV contrast was administered without complication. A dose lowering technique was utilized adhering to the principles of ALARA. CT DOSE: 277.97 mGy.cm FINDINGS: The heart is moderately enlarged. The liver, spleen, adrenal glands, kidneys and pancreas are unremarkable. There is extensive atherosclerotic plaque of the abdominal aorta which is ectatic, measuring up to 2.7 cm. No pneumatosis, free air or portal venous gas is present. There is no evidence for a bowel obstruction. There is severe pancolonic diverticulosis. Note is made of mild infiltration and wall thickening of the mid sigmoid colon. There is no free air or abscess. No lymphadenopathy is present. There are no suspicious osseous lesions. IMPRESSION: Mild pericolonic infiltration and wall thickening of the mid descending colon suggestive of acute diverticulitis. No free air or abscess. Severe pancolonic diverticulosis. A follow-up CT in one month is recommended to exclude the less likely possibility of an underlying mucosal lesion. Electronically signed by: Jacob Carr M.D. 09/23/2017 9:56 PM Dictated Date/Time: 09/23/2017 9:50 PM The status of this report is Signed. Draft = Not yet reviewed or approved by Radiologist. Signed = Reviewed and approved by Radiologist. <AttendingPhy></AttendingPhy> <FamilyPhy>Ulysses Price M.D.</FamilyPhy> < PrimaryPhy>Ulysses Price M.D.</PrimaryPhy> <UnitNumber>[id number]</UnitNumber > <VisitNumber>[id number]</VisitNumber> <PatientName>YESSICA PAREDES I</ PatientName> <DateOfBirth>1930</DateOfBirth> <Location>C.EDB</Location> < ServiceDate>09/23/17</ServiceDate> <MNE>ESINDI</MNE> <OrderingPhy>Virgilio Cornejo M.D.</OrderingPhy> <OrderingPhyMNE>f rep ord dr lr</OrderingPhyMNE> < DictatingPhyMNE>f rep dict dr lr</DictatingPhyMNE> <CCListMNE>f rep ct mne</ CCListMNE> <AdmittingPhyMNE>f pt admit dr lr</AdmittingPhyMNE> <AttendingPhyMNE >f pt attend dr lr</AttendingPhyMNE> <ConsultingPhyMNE>f pt consult dr lr</ConsultingPhyMNE> <FamilyPhyMNE>f pt fam dr lr</FamilyPhyMNE> <OtherPhyMNE>f pt other dr lr</OtherPhyMNE> < PrimaryPhyMNE>f pt prim care dr lr</PrimaryPhyMNE> <ReferringPhyMNE>f pt referring dr lr</ReferringPhyMNE> Patient Name: YESSICA PAREDES I Unit Number: [id number] Dictated: 09/23/[id number] Transcribed: 09/23/172258 KELLIE Printed Date/Time: [~ rep prt dt]/[~ rep prt tm] [~ rep ct labl] - [~ rep ct ivnm] [facility] [place] [address] Dictated: 09/23/[id number] Transcribed: 09/23/172258 KELLIE Printed Date/Time: [~ rep prt dt]/[~ rep prt tm] [~ rep ct labl] - [~ rep ct ivnm] [~ rep ct add3]] CT OF THE HEAD WITHOUT CONTRAST CLINICAL HISTORY: Left eye vision loss. COMPARISON STUDY: Head CT June 08, 2017. CT DOSE: 537.48 mGy.cm TECHNIQUE: Helical axial images of the head were obtained without IV contrast. Automated exposure control was utilized for the study. A dose lowering technique was utilized adhering to the principles of ALARA. FINDINGS: Intravenous contrast is from recent contrast-enhanced CT of the abdomen and pelvis. No acute intracranial hemorrhage, midline shift or mass effect is present. Ventricular system is unchanged. Basilar cisterns are patent. There are no extra axial collections. White matter hypodensity suggests small vessel disease. These are unchanged. There are no findings to suggest acute dural sinus thrombosis or acute territorial infarct. Visualized portions of the right maxillary sinus are opacified. Left maxillary sinus air-fluid level is partially imaged. Anterior right ethmoid air cells and right frontal sinuses are opacified. Similar findings were shown on exam of June 08, 2017. IMPRESSION: 1. No acute intracranial findings. 2. Paranasal sinus disease which is similar to exam of June 08, 2017. Electronically signed by: Jacob Carr M.D. 09/23/2017 11:02 PM Dictated Date/Time: 09/23/2017 10:59 PM The status of this report is Signed. Draft = Not yet reviewed or approved by Radiologist. Signed = Reviewed and approved by Radiologist. <AttendingPhy></AttendingPhy> <FamilyPhy>Ulysses Price M.D.</FamilyPhy> < PrimaryPhy>Ulysses Price M.D.</PrimaryPhy> <UnitNumber>[id number]</UnitNumber > <VisitNumber>[id number]</VisitNumber> <PatientName>YESSICA PAREDES I</ PatientName> <DateOfBirth>1930</DateOfBirth> <Location>C.EDB</Location> < ServiceDate>09/23/17</ServiceDate> <MNE>ESINDI</MNE> <OrderingPhy>Virgilio Cornejo M.D.</OrderingPhy> <OrderingPhyMNE>f rep ord dr lr</OrderingPhyMNE> < DictatingPhyMNE>f rep dict dr lr</DictatingPhyMNE> <CCListMNE>f rep ct mne</ CCListMNE> <AdmittingPhyMNE>f pt admit dr lr</AdmittingPhyMNE> <AttendingPhyMNE >f pt attend dr lr</AttendingPhyMNE> <ConsultingPhyMNE>f pt consult dr lr</ConsultingPhyMNE> <FamilyPhyMNE>f pt fam dr lr</FamilyPhyMNE> <OtherPhyMNE>f pt other dr lr</OtherPhyMNE> < PrimaryPhyMNE>f pt prim care dr lr</PrimaryPhyMNE> <ReferringPhyMNE>f pt referring dr lr</ReferringPhyMNE> EKG EKG shows normal sinus rhythm at 78 bpm, anteroseptal infarct that is new compared to 06/09/17. Impression Assessment and Plan Central retinal artery occlusion left eye-- Dr. Cornejo discussed with on-call ophthalmology, who felt that no acute treatment would be of benefit. CT of head negative for acute findings. We will order carotid Dopplers, and MRI of Brain. Check a fasting lipid panel and hemoglobin A1c. NSTEMI/new anteroseptal LA compared to 06/09/17-- The patient will be admitted to telemetry for serial cardiac enzymes, serial EKG's, cardiac rhythm monitoring and a 2-D echocardiogram with Dopplers. Continue aspirin 81 mg daily, lisinopril 5 mg daily, and metoprolol tartrate 25 mg p.o. twice daily. Consult cardiology. Diverticulitis-- Placed on Zosyn 3.375 mg IV every 8 hours. Continue dicyclomine. Advanced Directives Existing Advance Directive: No Existing Living Will: No Existing Power of Cook Fish Eggs: No Resuscitation Status VTE Prophylaxis Will order VTE Prophylaxis: Yes Social Service Consult None Apply
--- NOTE | 2017-09-23 23:04 | DIAGNOSTIC IMAGING REPORT ---
CT OF THE HEAD WITHOUT CONTRAST CLINICAL HISTORY: Left eye vision loss. COMPARISON STUDY: Head CT June 08, 2017. CT DOSE: 537.48 mGy.cm TECHNIQUE: Helical axial images of the head were obtained without IV contrast. Automated exposure control was utilized for the study. A dose lowering technique was utilized adhering to the principles of ALARA. FINDINGS: Intravenous contrast is from recent contrast-enhanced CT of the abdomen and pelvis. No acute intracranial hemorrhage, midline shift or mass effect is present. Ventricular system is unchanged. Basilar cisterns are patent. There are no extra axial collections. White matter hypodensity suggests small vessel disease. These are unchanged. There are no findings to suggest acute dural sinus thrombosis or acute territorial infarct. Visualized portions of the right maxillary sinus are opacified. Left maxillary sinus air-fluid level is partially imaged. Anterior right ethmoid air cells and right frontal sinuses are opacified. Similar findings were shown on exam of June 08, 2017. IMPRESSION: 1. No acute intracranial findings. 2. Paranasal sinus disease which is similar to exam of June 08, 2017. Electronically signed by: Jacob Carr M.D. 09/23/2017 11:02 PM Dictated Date/Time: 09/23/2017 10:59 PM
[2017-09-24 00:13] VITALS: BP 175/78; PULSE 66; TEMP 36.8; O2SAT 93; Ht 157.5 cm; Wt 60.9 kg
[2017-09-24] MEDS ORDERED: PIPERACILL/TAZOBAC IV 3.375 GM in DEXTROSE 5% 100ML 100 ML IV STA (00:36)
[2017-09-24 04:12] VITALS: BP 132/63; PULSE 72; TEMP 36.8; O2SAT 98
[2017-09-24] MEDS: PIPERACILL/TAZOBAC IV 3.375 GM in DEXTROSE 5% 100ML 100 ML IV SCH ×3 (05:51→22:34)
[2017-09-24 06:50] LABS: HEMOGLOBIN 13.2 g/dL (12.0-16.0); IG# 0.01 K/uL (0.00-0.02); LYMPH % 19.5 %; LYMPH ABS # 1.14 K/uL (1.2-3.4); MEAN CELL VOLUME 86.4 fL (80-100); MEAN CORPUSCULAR HGB CONC 34.7 g/dl (32-36); MEAN PLATELET VOLUME 9.1 fL (7.4-10.4); MONO % 0.9 %; MONO ABS # 0.05 K/uL (0.11-0.59); NEUT % 79.4 %; NEUT ABS # 4.66 K/uL (1.4-6.5); PLATELET COUNT 308 K/uL (130-400); RED CELL DISTRIBUTION WIDTH CV 12.9 % (11.5-14.5); WHITE BLOOD COUNT 5.86 K/uL (4.8-10.8)
[2017-09-24 06:59] LABS: PTT PATIENT 34.1 SECONDS (21.0-31.0)
[2017-09-24 07:19] VITALS: BP 146/74; PULSE 75; TEMP 36.7; O2SAT 94
[2017-09-24 07:22] LABS: CALCIUM 9.1 mg/dl (8.5-10.1); CREATININE 0.81 mg/dl (0.60-1.20)
[2017-09-24 07:28] LABS: CKMB 3.4 ng/ml (0.5-3.6)
[2017-09-24] MEDS: ASPIRIN 81 MG ECTAB PO SCH (07:28)
[2017-09-24] MEDS: METOPROLOL TARTRATE 25 MG TAB PO SCH ×2 (07:29→20:08)
[2017-09-24] MEDS: LISINOPRIL 5 MG TAB PO SCH (07:30)
[2017-09-24] MEDS: LACTOBACILLUS ACIDOPHILUS (FLORANEX) TAB PO SCH (07:30)
[2017-09-24] MEDS: DICYCLOMINE HCL 10 MG CAP PO SCH ×2 (07:30→20:08)
[2017-09-24] MEDS: CHOLECALCIFEROL 1000 INTER.UNIT TAB PO SCH (07:31)
[2017-09-24] MEDS: MULTIVITAMIN TAB PO SCH (07:31)
[2017-09-24] MEDS: PSYLLIUM 58.6% PWD PACK S\\F PO SCH (07:32)
--- NOTE | 2017-09-24 07:44 | DIAGNOSTIC IMAGING REPORT ---
CAROTID DOPPLER NECK ART CLINICAL HISTORY: 86 years-old Female presenting with ACUTE VISION LOSS. TECHNIQUE: Real-time grayscale and color and spectral Doppler ultrasound imaging of the bilateral carotid arteries was performed. NASCET criteria was used in evaluating this study. COMPARISON: None. FINDINGS: Right: Common carotid: Atherosclerosis. Peak systolic velocity 78 cm/s. Internal carotid artery: Atherosclerosis of the proximal ICA. Peak systolic velocity 81 cm/s. Systolic ratio: 1.04. External carotid artery: Atherosclerosis. Peak systolic velocity 92 cm/s. Left: Common carotid: Atherosclerosis. Peak systolic velocity 72 cm/s. Internal carotid artery: Atherosclerosis of the proximal ICA. Peak systolic velocity 84 cm/s. Systolic ratio: 1.17. External carotid artery: Atherosclerosis. Peak systolic velocity 89 cm/s. Bilateral antegrade flow within the vertebral arteries. Reference ranges: Stenosis measurements are compared to reference velocity parameters. Primary parameters: ICA peak systolic velocity (PSV) < 125 cm/s normal or indicating < 50% stenosis; ICA PSV 125-230 cm/s equivalent to 50-69% stenosis; ICA PSV > 230 cm/s equivalent to greater than or equal to 70% stenosis. Additional parameters: ICA PSV to common carotid artery PSV ratio < 2 normal or < 50% stenosis; 2-4 equates to 50-69% stenosis, > 4 equates to greater than or equal to 70% stenosis. Normal ICA end-diastolic velocity less than 40. Blood pressure Brachial: Right: 184/90 mmHg, Left: 190/102 mmHg. IMPRESSION: 1. Atherosclerosis without hemodynamically significant stenosis seen within the carotid arteries. 2. Systemic hypertension. Electronically signed by: Rob Palomo M.D. 09/24/2017 7:43 AM Dictated Date/Time: 09/24/2017 7:19 AM
[2017-09-24 07:58] LABS: HEMOGLOBIN A1C 5.6 % (4.5-5.6)
[2017-09-24] MEDS ORDERED: HEPARIN SOD 5000 UNIT/0.5 ML CARP SQ SCH (09:00)
[2017-09-24] MEDS: SODIUM CHLORIDE 0.9% 1000ML 1,000 ML IV SCH ×2 (09:15→22:36)
--- NOTE | 2017-09-24 10:56 | CARDIOLOGY CONSULTATION ---
DATE OF CONSULTATION: 09/24/2017 PRIMARY PHYSICIAN: Ulysses Price MD REFERRING PHYSICIAN: Xu Costa MD CONSULTATION: Jon Pappas MD HISTORY OF PRESENT ILLNESS: The patient is an 86-year-old white female with a history of hypertension, hyperglycemia, dyslipidemia, and diverticulosis. Over the past 3-4 days, she has been experiencing left lower quadrant abdominal pain. She states this is consistent with her prior episodes of diverticulitis. Her appetite is, however, good. No nausea. She is able to eat her breakfast this morning without any difficulty. No symptoms of GI bleeding. The patient did not come to the hospital because of her abdominal discomfort. Her main complaint was sudden loss of vision in her left eye, occurring yesterday morning. This was preceded by a sensation of blurry vision. She states that over the past several years, she has had a few episodes of blurry vision in her left eye, which then spontaneously resolved. Yesterday morning, she was in her usual state of health other than the mild left lower quadrant abdominal pain. Between 10 and 11 a.m., she had the sudden loss of vision in her left eye. She contacted her primary care provider. She was subsequently seen in walk-in clinic at [facility] in the [facility]. She was then referred to the Emergency Department. 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 She was treated with intravenous methylprednisolone. She also received tropicamide eyedrops. She was admitted to the telemetry unit because of elevated cardiac enzymes. The patient was seen by me this morning in her telemetry unit room. She states that she is regaining vision in her left eye. She is able to tell the difference between light and dark in her central field. She is able to see in her peripheral vision from the left eye. She had a mild frontal headache yesterday. No severe headache. Yesterday, she denies having had any chest pain or other anginal type pains. No anginal equivalent symptoms such as acute dyspnea, acute weakness, or epigastric discomfort. No chest, arm, shoulder, neck, or back pain. She states that prior to her vision loss yesterday morning, she was in her usual state of health other than the left lower quadrant abdominal discomfort. She denies any exertionally precipitated anginal type symptoms. She has had stable exercise tolerance recently. She has stable dyspnea walking up a flight of stairs. No dyspnea walking on a level surface. She denies any orthopnea or PND. She denies any palpitations, lightheadedness, or syncope. PAST MEDICAL HISTORY: 1. Hypertension. 2. Hyperglycemia. 3. Dyslipidemia. 4. History of irritable bowel syndrome. 5. Vitamin D deficiency. 6. Osteoarthritis. 7. History of diverticulosis and diverticulitis. 8. Admission for syncope on 06/08/2017 to [facility]. On that admission, she was noted to have paroxysmal atrial fibrillation. On that visit, she declined chronic anticoagulation therapy. An echocardiogram performed on 06/09/2017 revealed hyperdynamic LV systolic function, mild to moderate LVH, sclerotic aortic valve with trace aortic regurgitation, no significant LV outflow tract obstruction, and normal estimated right ventricular systolic pressure. Her troponin I was mildly elevated on May admission at 0.048. Her electrocardiogram did not reveal any acute ischemic changes. Her electrocardiogram on June 08 revealed atrial fibrillation. QS complexes in V1 and V2 consistent with septal myocardial infarction. She had no further electrocardiograms performed on that admission. MEDICATIONS: At the time of this admission were aspirin 81 mg daily, vitamin D3 of 6000 units daily, dicyclomine 10 mg b.i.d., lisinopril 5 mg daily, metoprolol tartrate 25 mg b.i.d., multivitamin 1 daily, probiotic 1 cap daily, and psyllium daily. She is also on buspirone 5 mg daily as needed for anxiety. ALLERGIES AND ADVERSE DRUG REACTIONS: CEPHALEXIN AND IBUPROFEN. SOCIAL HISTORY: The patient is a . She lives with her daughter. They live in the [place] area. Her daughter is a chiropractor. She has not smoked cigarettes. She does not drink alcohol. FAMILY HISTORY: Her son had coronary artery disease and underwent PCI procedure when he was in his 50s. REVIEW OF SYSTEMS: 1. As above. 2. No earache or sore throat. 3. Occasional temperature elevation with episodes of diverticulitis. 4. No urinary complaints. 5. No pulmonary complaints. 6. No focal motor weakness in extremities or face. 7. Mild frontal discomfort. She has a history of sinusitis. 8. No skin rash complaints. 9. No unusual myalgias or arthralgias. 10. The patient states that she does sometimes have dependent lower leg edema at the end of the day. For this, she wears compression socks. Her edema resolves with elevation of the legs overnight. CURRENT MEDICATIONS: Normal saline 80 mL per hour, subQ heparin 5000 units q. 12 hours, aspirin 81 mg daily, buspirone 5 mg daily, dicyclomine 10 mg b.i.d., lisinopril 5 mg daily, metoprolol tartrate 25 mg b.i.d., multivitamin 1 daily, psyllium 1 packet daily, vitamin D 6000 units daily, lactobacillus acidophilus 1 tab daily, piperacillin/tazobactam 3.375 grams IV q. 8 hours, and several p.r.n. medications. Monitor history since admission reviewed by me. Sinus rhythm. No atrial fibrillation. PHYSICAL EXAMINATION: VITAL SIGNS: Blood pressure last evening was as high as 213/90. Blood pressure this morning is 146/74. Pulse 75 beats per minute. GENERAL APPEARANCE: Showed her to be lying in bed in no distress. EYES: Pupils equal and round. Anicteric. Conjunctivae normal. NECK: No jugular venous distension. Carotids 2/2 bilaterally. Normal upstroke. No bruits. LUNGS: Normal respiratory effort. No rales or wheezes. HEART: Regular rate and rhythm. PMI normal. No lifts or heaves. S1 and S2 normal. An S4 is present. Grade 1/6 systolic murmur at the second right intercostal space. No diastolic murmur or rub. ABDOMEN: No bruits. Normal bowel sounds. Soft. Left lower quadrant tenderness. No palpable masses or organomegaly. EXTREMITIES: No pretibial edema. No cyanosis or clubbing. PULSES: Distal pulses in the all extremities palpable. CT scan of the head performed last evening revealed no acute intracranial abnormality. There was evidence of paranasal sinus disease. Abdominal CT scan performed last evening revealed evidence of acute diverticulitis in the mid descending colon. Severe pancolonic diverticulosis. Carotid ultrasound performed last evening revealed atherosclerotic disease in both internal carotid arteries. No significant stenoses. Electrocardiogram performed last evening at 19:36 revealed normal sinus rhythm, poor R-wave progression in V1-V3. No acute ST or T-wave abnormalities. Electrocardiogram performed this morning and reviewed by me shows sinus rhythm with first degree AV block. Normal R-wave progression in V1-V3. No acute ST segment or T-wave abnormalities. DE interval was 224 milliseconds. Chest x-ray was not performed on this admission. LABORATORY DATA: Today with WBC 5.86, hemoglobin 13.2, platelet count 308, and hematocrit 38. INR today 1.0. PTT 34.1. Metabolic profile today with sodium 126, potassium 4.0, chloride 94, carbon dioxide 23, BUN 12, creatinine 0.81, and random glucose 181. Magnesium 2.1. Lipid profile, triglycerides 58, total cholesterol 166, calculated LDL 93, and HDL 61. CK total this morning 79 with MB of 3.4. Troponin I last evening 2.490. This morning 1.710. ASSESSMENT: 1. 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 She is regaining sight in her left eye. This would suggest a branch retinal artery occlusion occurring yesterday. Possible etiologies would include paroxysmal atrial fibrillation. She has been noted to have atrial fibrillation on her May 2017 admission. Currently in sinus rhythm. She has atherosclerosis in her carotid arteries. This is another possible etiology. She is not having any severe headaches. This would go against giant cell arteritis. She has no history of clotting disorder. The most likely etiologies for formal embolic event to her eyes would be paroxysmal atrial fibrillation or her atherosclerotic carotid artery disease. 2. Elevated troponin I. She has no anginal or anginal equivalent symptoms. Her electrocardiogram last evening showed poor R-wave progression in V1-V3. Today's electrocardiogram shows normal R-wave progression. There are no acute ST segment or T-wave abnormalities indicative of ischemia on electrocardiogram. On previous echo in May 2017, she had hyperdynamic LV systolic function and mild to moderate left ventricular hypertrophy. Last evening, she had severe systolic hypertension. The elevated blood pressure, hyperdynamic LV systolic function, and left ventricular hypertrophy could certainly cause her to have demand ischemia, causing elevation in her cardiac enzymes. 3. No evidence of congestive heart failure on exam. 4. Hypertension. Markedly hypertensive last evening. Blood pressure improved today. 5. Diverticulosis and diverticulitis. 6. Hyponatremia. Her sodium last evening was 129. Decreased to 126 today. On her May admission, her sodium was 133. 7. Dyslipidemia. RECOMMENDATIONS: 1. Her blood pressure this morning has improved since last night. I do not want to significantly lower her blood pressure. Would like to maintain perfusion to her retinal artery. However, if she has any significantly elevated blood pressures, she may need as needed intravenous antihypertensive. With her hyperdynamic LV systolic function, would recommend as needed labetalol. 2. The patient now agrees to anticoagulation therapy. She does not want to be on warfarin. She is agreeable to be on a novel oral anticoagulant. 3. At this time, would start her on intravenous heparin. If she is stable and does not appear to need any invasive procedures, would then place her on a novel oral anticoagulant. 4. Would start her on statin therapy. 5. Continue metoprolol and aspirin. 6. As the patient has no evidence on her electrocardiogram of an acute coronary event and no symptoms suggesting an acute coronary event, there is no indication for urgent cardiac catheterization. The patient actually says that she would decline undergoing catheterization procedure. At this time, I am not recommending a cardiac catheterization procedure. 7. Await echo results from today. I suspect that they will show continued hyperdynamic LV systolic function and no segmental wall motion abnormalities. The above assessment and recommendations were discussed with the patient's hospitalist Dr. Seth Arevalo. MARKO
[2017-09-24 11:20] VITALS: BP 122/73; PULSE 66; TEMP 37; O2SAT 94
[2017-09-24] MEDS ORDERED: SODIUM CHLORIDE 1 GM TAB PO ONE (12:15)
[2017-09-24] MEDS ORDERED: ENOXAPARIN 60 MG/0.6 ML SYR SQ SCH (12:15)
[2017-09-24] MEDS: ENOXAPARIN 60 MG/0.6 ML SYR SQ SCH ×2 (12:23→22:34)
[2017-09-24] MEDS ORDERED: GADAVIST IV PRN (15:00)
--- NOTE | 2017-09-24 15:17 | DIAGNOSTIC IMAGING REPORT ---
MRI OF THE BRAIN COMBO CLINICAL HISTORY: Headache. Vision loss. COMPARISON STUDY: CT of the brain dated 09/23/2017. TECHNIQUE: MRI of the brain was performed utilizing various T1 and T2-weighted sequences in the axial, sagittal, and coronal planes. Contrast-enhanced sequences were acquired following the administration of 6 cc of Gadavist. FINDINGS: Brain parenchyma: There are age-related involutional changes noting moderate confluent subcortical and periventricular microangiopathic disease. There are at least 4 punctate foci of restricted diffusion identified. These are located in the left basilio radiata, the left caudate head, the left internal capsule, and the right occipital white matter. These were corroborated on the ADC maps and likely represent tiny acute to subacute lacunar infarct. There is no hemorrhage or mass effect. Tiny chronic lacunar infarcts identified in the cerebellar hemispheres. Prominent perivascular spaces are noted in the basal ganglia. No enhancing mass lesion is identified on the postcontrast images. Plaza-white matter differentiation is preserved. No extra-axial fluid collection is seen. The cerebellar tonsils are normal in configuration. Ventricles, sulci, and cisterns: Prominent secondary to involutional change. Pituitary and sella: Unremarkable. Intracranial vasculature: Normal flow voids are maintained at the skull base. Orbits: The bony orbits are grossly intact. Orbital contents are normal in appearance noting bilateral ocular lens implants. Sinuses and mastoids: There is subtotal opacification of the right maxillary antrum. An air-fluid level seen in the left maxillary antrum. Mild mucosal thickening is noted within the right frontal and the ethmoid sinuses. The mastoid air cells are clear. Calvarium: Unremarkable. Cervical cord: Partially visualized cervical spinal cord is normal in morphology and signal intensity. IMPRESSION: 1. There are at least 4 punctate foci of restricted diffusion identified as detailed above. These are typical in appearance for tiny acute to subacute lacunar infarcts. 2. There is no hemorrhage or enhancing mass. 3. Senescent changes and chronic lacunar infarcts as above. 4. Maxillary sinus disease as above. Electronically signed by: Virgilio Cardona M.D. 09/24/2017 3:16 PM Dictated Date/Time: 09/24/2017 3:09 PM
--- NOTE | 2017-09-24 15:48 | EMERGENCY ROOM VISIT NOTE ---
History Report prepared by Bronson: Coy Ward Under the Supervision of: Dr. Virgilio Cornejo M.D. First contact with patient: 19:34 Chief Complaint: EYE ASSESSMENT Stated Complaint: LOSS SIGHT IN LEFT EYE, STOMACH PAINS History of Present Illness The patient is an 86 year old female who presents to the Emergency Room with complaints of a constant loss of vision in her left eye occurring at 1000 this morning. The patient states that she was in the bathroom this morning and all of a sudden had a "funny sensation" that then caused her to lose vision in her left eye. She notes that she is able to see a mild amount of light and motion. She denies having any left eye pain, right eye vision loss, fever, chills, vomiting, diarrhea, and urinary symptoms. She reports that she is also experiencing intermittent abdominal cramping likely due to her history of diverticulitis. The patient states that she has resolved atrial fibrillation, and takes 50mg daily of a beta regine and aspirin. She notes that she has had cataract surgery in the past. Per son, the patient saw her doctor today and reports that he was concerned that the patient's loss of vision was due to a blood clot in her eye. He states that the patient has not had any recent trauma to cause her symptoms and does not have any previous history of blood clotting. Source of History: patient, family (son) Onset: 1000 this morning Position: eye (left) Quality: other (vision loss) Timing: constant Associated Symptoms: + abdominal pain (cramping), No fevers, No chills, No vomiting, No diarrhea, No urinary symptoms Note: The patient denies any left eye pain and right eye vision loss. Review of Systems See HPI for pertinent positives & negatives. A total of 10 systems reviewed and were otherwise negative. Past Medical & Surgical Medical Problems: (1) Afib (2) Diverticulitis (3) Hypertension (4) NSTEMI, initial episode of care (5) Respiratory infection (6) Vision loss Surgical Problems: (1) History of cataract surgery Family History Heart Disease Social History Smoking Status: Never Smoker Drug Use: none Marital Status: Housing Status: lives with family Occupation Status: retired Current/Historical Medications Scheduled Aspirin (Aspirin Ec), 81 MG PO DAILY Cholecalciferol (Vitamin D3), 6,000 UNITS PO DAILY Dicyclomine Hcl (Dicyclomine Hcl), 10 MG PO BID Lisinopril (Zestril), 5 MG PO DAILY Metoprolol Tartrate (Lopressor) (Lopressor), 25 MG PO BID Multivitamin (Multivitamin), 1 TAB PO DAILY Probiotic Product (Probiotic), 1 CAP PO DAILY Psyllium (Fiber Laxative), 0.52 CAP PO DAILY Scheduled PRN Buspirone Hcl (Buspirone Hcl), 5 MG PO DAILY PRN for Anxiety Allergies Coded Allergies: Cephalexin (Unverified Allergy, Severe, RASH, 06/08/17) Ibuprofen (Unverified Allergy, Intermediate, CONGESTION, S.O.B, 06/08/17) Physical Exam Vital Signs Date Time Temp Pulse Resp B/P (MAP) Pulse Ox O2 Delivery O2 Flow Rate FiO2 09/23/17 22:43 75 18 211/90 96 Room Air 09/23/17 20:58 75 18 213/90 97 Room Air 09/23/17 19:20 36.7 77 16 173/82 97 Room Air Physical Exam GENERAL: Patient is in no acute distress. HEENT: No acute trauma, normocephalic atraumatic, mucous membranes moist, no nasal congestion, no scleral icterus. Visualization of the retina is difficult secondary to previous eye surgery, limited view suggests a pale retina, when right eye is closed the patient is essentially blind--no left eye vision. NECK: No stridor, no adenopathy, no meningismus, trachea is midline. LUNGS: Clear to auscultation bilaterally, no wheeze, no rhonchi, breath sounds equal. HEART: 2/6 systolic murmur, regular rate and rhythm ABDOMEN: Soft, moderately tender in LLQ, bowel sounds positive, no hernias, no peritonitis. EXTREMITIES: No cyanosis or edema, full range of motion of all the joints without pain or difficulty, no signs for acute trauma. NEUROLOGIC: Oriented x 3, no acute motor or sensory deficits, no focal weakness. No pronator drifting. SKIN: No rash, no jaundice, no diaphoresis. Medical Decision & Procedures ER Provider Diagnostic Interpretation: Radiology results as stated below per my review and radiologist interpretation: CT OF THE ABDOMEN AND PELVIS WITH CONTRAST FINDINGS: The heart is moderately enlarged. The liver, spleen, adrenal glands, kidneys and pancreas are unremarkable. There is extensive atherosclerotic plaque of the abdominal aorta which is ectatic, measuring up to 2.7 cm. No pneumatosis, free air or portal venous gas is present. There is no evidence for a bowel obstruction. There is severe pancolonic diverticulosis. Note is made of mild infiltration and wall thickening of the mid sigmoid colon. There is no free air or abscess. No lymphadenopathy is present. There are no suspicious osseous lesions. IMPRESSION: Mild pericolonic infiltration and wall thickening of the mid descending colon suggestive of acute diverticulitis. No free air or abscess. Severe pancolonic diverticulosis. A follow-up CT in one month is recommended to exclude the less likely possibility of an underlying mucosal lesion. Electronically signed by: Jacob Carr M.D. 09/23/2017 9:[address] OF THE HEAD WITHOUT CONTRAST FINDINGS: Intravenous contrast is from recent contrast-enhanced CT of the abdomen and pelvis. No acute intracranial hemorrhage, midline shift or mass effect is present. Ventricular system is unchanged. Basilar cisterns are patent. There are no extra axial collections. White matter hypodensity suggests small vessel disease. These are unchanged. There are no findings to suggest acute dural sinus thrombosis or acute territorial infarct. Visualized portions of the right maxillary sinus are opacified. Left maxillary sinus air-fluid level is partially imaged. Anterior right ethmoid air cells and right frontal sinuses are opacified. Similar findings were shown on exam of June 08, 2017. IMPRESSION: 1. No acute intracranial findings. 2. Paranasal sinus disease which is similar to exam of June 08, 2017. Electronically signed by: Jacob Carr M.D. 09/23/2017 11:02 PM Laboratory Results Test 09/23/17 19:55 09/23/17 21:41 Erythrocyte Sedimentation Rate 66 mm/hr (0-21) Total Bilirubin 0.4 mg/dl (0.2-1) Direct Bilirubin 0.1 mg/dl (0-0.2) Aspartate Amino Transf (AST/SGOT) 24 U/L (15-37) Alanine Aminotransferase (ALT/SGPT) 17 U/L (12-78) Alkaline Phosphatase 58 U/L (45-117) C-Reactive Protein 1.93 mg/dl (0-0.29) Total Protein 8.1 gm/dl (6.4-8.2) Albumin 3.7 gm/dl (3.4-5.0) Lipase 172 U/L (73-393) Urine Color YELLOW Urine Appearance CLOUDY (CLEAR) Urine pH 6.0 (4.5-7.5) Urine Specific [place] 1.016 (1.000-1.030) Urine Protein NEG (NEG) Urine Glucose (UA) NEG (NEG) Urine Ketones NEG (NEG) Urine Occult Blood NEG (NEG) Urine Nitrite NEG (NEG) Urine Bilirubin NEG (NEG) Urine Urobilinogen NEG (NEG) Urine Leukocyte Esterase MODERATE (NEG) Urine WBC (Auto) 5-10 /hpf (0-5) Urine RBC (Auto) 0-4 /hpf (0-4) Urine Hyaline Casts (Auto) 1-5 /lpf (0-5) Urine Epithelial Cells (Auto) 20-30 /lpf (0-5) Urine Bacteria (Auto) NEG (NEG) Laboratory results reviewed by me. Medications Administered Medications (Trade) Dose Ordered Sig/Tito Route Start Time Stop Time Status Last Admin Dose Admin Methylprednisolone Sodium Succinate (Solu-Medrol IV) 125 mg NOW STAT IV 09/23/17 21:35 09/23/17 21:36 DC 09/23/17 22:39 125 MG Metoprolol Tartrate (Lopressor Tab) 25 mg NOW STAT PO 09/23/17 21:36 09/23/17 21:37 DC 09/23/17 22:39 25 MG ECG Per My Interpretation Indication: abdominal pain Rate (beats per minute): 76 Rhythm: normal sinus Findings: ST depression (Lateral), other (Old inferior and old anterior infarct , no ST elevation) Comparison ECG Date: 06/09/2017 Change: Compared to prior, lateral ST depression and anterior infarct is new. ED Course 1934: The patient was evaluated in room B12. A complete history and physical exam was performed. 1951: Discussed the patient's case with Dr. Downey - Opthalmology, [facility]. He suggests that I should check the patients eye pressure and obtain labs. He also notes that I can dilate her eye in order to get a better look. 1999: Tropicamide 2 drops OP 2004: The patient's right eye pressure is 21 and left eye pressure is 22. 2119: I reevaluated and updated the patient and her . I performed a left eye exam. It showed that the patient had a very pale retina consistent with a potential retinal artery occlusion. 2134: Solu-Medrol IV 2135: Metoprolol Tartrate 25mg PO 2142: I spoke [place]. [place] - [place] [facility] states that he would like the patients head scanned. 2225: I rechecked the patient and told her about her diverticulitis. Medical Decision Differential diagnoses include: retinal artery/vein occlusion, afib, diverticulitis, UTI, abscess, bowel perforation, stroke, pancreatitis, and appendicitis. There is no leukocytosis or concerning anemia. Sed rate and CRP are somewhat elevated. No significant electrolyte abnormality or kidney failure. No hepatitis. EKG shows a sinus rhythm with an old inferior and old anterior infarct. There is some subtle ST depression laterally. This EKG is somewhat changed compared to previous. Cardiac enzyme testing 1 does show a troponin elevation concerning for cardiac injury or strain. Abdominal and pelvis CT shows evidence for diverticulitis, no bowel obstruction. Brain CT shows no acute bleed or mass-effect. Urinalysis does not show infection. Patient presents with left eye vision loss. On my exam, she appears to have a very pale retina and I am concerned for a central retinal artery occlusion as the cause for her visual issue. She appears to have diverticulitis by CT and this explains the left sided abdominal pain. Patient's blood pressure was elevated in the ED, she was given her typical dose of nighttime blood pressure medication, oral metoprolol. Patient was given a dose of IV Solu-Medrol in case she was developing temporal arteritis. I discussed the case with ophthalmology detective automobile section. Unfortunately, there is nothing that truly can be done to help with her current visual loss. The goal was to determine the cause and to prevent further loss of vision. I did do a pressure test on both eyes, the pressure was 21 on the right and 22 on the left-no glaucoma. I did dilate her left eye and confirmed a very pale left retina. I do think a hospital stay is warranted. She has diverticulitis, she has lost vision in her left eye, she has an elevation to her troponin. Further workup in the hospital is warranted. I spoke to the patient and case management. I discussed the case with the on-call hospitalist. Medication Reconcilliation Current Medication List: was personally reviewed by me Blood Pressure Screening Patient's blood pressure: Elevated blood pressure Elevated blood pressure will be monitored by hospitalist. Consults Time Called: 1949 Consulting Physician: Dr. Downey - Opthalmology [facility] Returned Call: 1951 Discussed the patient's case. He suggests that I should check the patients eye pressure and obtain labs. He also notes that I can dilate her eye in order to get a better look. Additional Consults: Time Called: 2129 Consulted Physician: Dr. Costa - [place], [facility] Returned Call: 2142 Additional Comments: Discussed the patient's case. Dr. Costa states that he would like the patient's head scanned. The patient will be evaluated for further management. Impression Primary Impression: Vision loss, left eye Additional Impressions: Elevated troponin Acute diverticulitis Scribe Attestation The scribe's documentation has been prepared under my direction and personally reviewed by me in its entirety. I confirm that the note above accurately reflects all work, treatment, procedures, and medical decision making performed by me. Departure Information Dispostion Being Evaluated By Hospitalist Referrals Ulysses Price M.D. (PCP) Patient Instructions My [facility] Problem Qualifiers
[2017-09-24 16:25] LABS: CKMB 2.3 ng/ml (0.5-3.6)
--- NOTE | 2017-09-24 16:29 | Progress Note ---
Subjective Date of Service: Sep 24, 2017. Subjective Pt evaluation today including: conversation w/ patient, conversation w/ family (daughter), physical exam, lab review, review of studies, review of inpatient medication list Pain: no abdominal pain PO Intake: adequate Voiding: no voiding problems patient feeling well, LLQ pain gone, eating well, no fever, vitals stable still with left eye vision changes, no longer complete loss, can see hazy figures in the light reviewed labs, Na down further to 126, troponin trending down MRI brain showed 4 tiny areas of restricted diffusion consistent with lacunar infarct discussed with Dr. Pappas, feels she had demand ischemia, not an LA, would not recommend heart catheterization Problem List Medical Problems: (1) Acute diverticulitis Status: Acute (2) Elevated troponin Status: Acute (3) New onset a-fib Status: Acute (4) Syncope Status: Acute (5) Vision loss, left eye Status: Acute Review of Systems Eyes: + problem reported (vision changes in left eye, slightly better) All Other Systems: Reviewed and Negative Medications Current Inpatient Medications Medications (Trade) Dose Ordered Sig/Tito Route Start Time Stop Time Status Last Admin Dose Admin Ioversol (Optiray 320) 100 ml UD PRN IV 09/23/17 20:15 09/27/17 20:14 Acetaminophen (Tylenol Tab) 650 mg Q4H PRN PO 09/23/17 23:00 10/23/17 22:59 Al Hydrox/Mg Hydrox/Simethicone (Maalox Max Susp) 15 ml Q4H PRN PO 09/23/17 23:00 10/23/17 22:59 Magnesium Hydroxide (Milk Of Magnesia Susp) 30 ml Q12H PRN PO 09/23/17 23:00 10/23/17 22:59 Nitroglycerin (Nitrostat Tab) 0.4 mg UD PRN SL 09/23/17 23:00 10/23/17 22:59 Aspirin (Ecotrin Tab) 81 mg DAILY PO 09/24/17 09:00 10/24/17 08:59 09/24/17 07:28 81 MG Buspirone HCl (Buspar Tab) 5 mg DAILY PO 09/24/17 09:00 10/24/17 08:59 09/24/17 07:28 5 MG Dicyclomine HCl (Bentyl Cap) 10 mg BID PO 09/24/17 09:00 10/24/17 08:59 09/24/17 07:30 10 MG Lisinopril (Zestril Tab) 5 mg DAILY PO 09/24/17 09:00 10/24/17 08:59 09/24/17 07:30 5 MG Metoprolol Tartrate (Lopressor Tab) 25 mg BID PO 09/24/17 09:00 10/24/17 08:59 09/24/17 07:29 25 MG Multivitamins (Multivitamin Tab) 1 tab DAILY PO 09/24/17 09:00 10/24/17 08:59 09/24/17 07:31 1 TAB Psyllium Hydrophilic Mucilloid (Metamucil Powder) 1 pkt DAILY PO 09/24/17 09:00 10/24/17 08:59 09/24/17 07:32 1 PKT Cholecalciferol (Vitamin D Tab) 6,000 inter.unit QAM PO 09/24/17 09:00 10/24/17 08:59 09/24/17 07:31 6,000 INTER.UNIT Lactobacillus Acidophilus (Floranex Tab) 1 tab QAM PO 09/24/17 09:00 10/24/17 08:59 09/24/17 07:30 1 TAB Ondansetron HCl (Zofran Odt) 8 mg Q6H PRN PO 09/23/17 23:00 10/23/17 22:59 Piperacillin Sod/ Tazobactam Sod 3.375 gm/Dextrose 115 ml @ 28.75 mls/ hr Q8H IV 09/24/17 06:00 10/04/17 05:59 09/24/17 15:30 28.75 MLS/HR Miscellaneous Information (Consult) 1 ea UD PRN N/A 09/23/17 23:00 10/23/17 22:59 Sodium Chloride 1,000 ml @ 80 mls/hr [id number] IV 09/24/17 09:15 10/24/17 09:14 09/24/17 09:15 80 MLS/HR Sodium Chloride (Sodium Chloride Tab) 1 gm DAILY PO 09/25/17 09:00 10/25/17 08:59 Enoxaparin Sodium (Lovenox Inj) 60 mg Q12@1100,2300 SQ 09/24/17 12:15 10/24/17 12:14 09/24/17 12:23 60 MG Gadobutrol (Gadavist) 6 mmol UD PRN IV 09/24/17 15:00 09/28/17 14:59 Objective Vital Signs Date Time Temp Pulse Resp B/P (MAP) Pulse Ox O2 Delivery O2 Flow Rate FiO2 09/24/17 15:47 Room Air 09/24/17 11:32 Room Air 09/24/17 11:20 37.0 66 20 122/73 (89) 94 Room Air 09/24/17 08:00 Room Air 09/24/17 07:19 36.7 75 20 146/74 (98) 94 Room Air 09/24/17 04:12 36.8 72 17 132/63 (86) 98 Room Air 09/24/17 04:00 Room Air 09/24/17 00:13 36.8 66 18 175/78 93 Room Air 09/23/17 23:08 75 18 194/99 96 Room Air 09/23/17 22:43 75 18 211/90 96 Room Air 09/23/17 20:58 75 18 213/90 97 Room Air 09/23/17 19:20 36.7 77 16 173/82 97 Room Air Physical Exam General Appearance: WD/WN, no apparent distress Eyes: normal inspection, PERRL, EOMI, sclerae normal, + pertinent finding (no visual acuity in left eye) ENT: normal ENT inspection, hearing grossly normal, pharynx normal Neck: supple, no adenopathy, no JVD, trachea midline Respiratory/Chest: chest non-tender, lungs clear, normal breath sounds, no respiratory distress, no accessory muscle use Cardiovascular: regular rate, rhythm, no edema, no gallop, no JVD, no murmur Abdomen: normal bowel sounds, non tender, soft, no organomegaly Extremities: normal range of motion, non-tender, normal inspection, no pedal edema, no calf tenderness, pelvis stable Neurologic/Psychiatric: post graduate intern II-XII nml as tested, no motor/sensory deficits, alert, normal mood/affect, oriented x 3 Skin: normal color, warm/dry, no rash Lymphatic: no adenopathy Laboratory Results Last 24 Hours Test 09/23/17 19:55 09/23/17 21:41 09/24/17 06:37 09/24/17 09:23 White Blood Count 10.70 K/uL 5.86 K/uL Red Blood Count 4.27 M/uL 4.40 M/uL Hemoglobin 12.9 g/dL 13.2 g/dL Hematocrit 37.1 % 38.0 % Mean Corpuscular Volume 86.9 fL 86.4 fL Mean Corpuscular Hemoglobin 30.2 pg 30.0 pg Mean Corpuscular Hemoglobin Concent 34.8 g/dl 34.7 g/dl RDW Standard Deviation 41.4 fL 41.0 fL RDW Coefficient of Variation 12.9 % 12.9 % Platelet Count 331 K/uL 308 K/uL Mean Platelet Volume 9.3 fL 9.1 fL Erythrocyte Sedimentation Rate 66 mm/hr Sodium Level 129 mmol/L 126 mmol/L Potassium Level 3.8 mmol/L 4.0 mmol/L Chloride Level 96 mmol/L 94 mmol/L Carbon Dioxide Level 25 mmol/L 23 mmol/L Anion Gap 8.0 mmol/L 9.0 mmol/L Blood Urea Nitrogen 13 mg/dl 12 mg/dl Creatinine 0.92 mg/dl 0.81 mg/dl Est Creatinine Clear Calc Drug Dose 36.4 ml/min 38.0 ml/min Estimated GFR () 64.4 75.2 Estimated GFR (Non- 55.6 64.8 BUN/Creatinine Ratio 14.5 15.1 Random Glucose 94 mg/dl 181 mg/dl Calcium Level 8.8 mg/dl 9.1 mg/dl Total Bilirubin 0.4 mg/dl Direct Bilirubin 0.1 mg/dl Aspartate Amino Transf (AST/SGOT) 24 U/L Alanine Aminotransferase (ALT/SGPT) 17 U/L Alkaline Phosphatase 58 U/L Troponin I 2.490 ng/ml 1.710 ng/ml C-Reactive Protein 1.93 mg/dl Total Protein 8.1 gm/dl Albumin 3.7 gm/dl Lipase 172 U/L Urine Color YELLOW Urine Appearance CLOUDY Urine pH 6.0 Urine Specific [place] 1.016 Urine Protein NEG Urine Glucose (UA) NEG Urine Ketones NEG Urine Occult Blood NEG Urine Nitrite NEG Urine Bilirubin NEG Urine Urobilinogen NEG Urine Leukocyte Esterase MODERATE Urine WBC (Auto) 5-10 /hpf Urine RBC (Auto) 0-4 /hpf Urine Hyaline Casts (Auto) 1-5 /lpf Urine Epithelial Cells (Auto) 20-30 /lpf Urine Bacteria (Auto) NEG Neutrophils (%) (Auto) 79.4 % Lymphocytes (%) (Auto) 19.5 % Monocytes (%) (Auto) 0.9 % Eosinophils (%) (Auto) 0.0 % Basophils (%) (Auto) 0.0 % Neutrophils # (Auto) 4.66 K/uL Lymphocytes # (Auto) 1.14 K/uL Monocytes # (Auto) 0.05 K/uL Eosinophils # (Auto) 0.00 K/uL Basophils # (Auto) 0.00 K/uL Immature Granulocyte % (Auto) 0.2 % Immature Granulocyte # (Auto) 0.01 K/uL Prothrombin Time 10.5 SECONDS Prothromb Time International Ratio 1.0 Activated Partial Thromboplast Time 34.1 SECONDS Partial Thromboplastin Ratio 1.3 Estimated Average Glucose 114 mg/dl Hemoglobin A1c 5.6 % Magnesium Level 2.1 mg/dl Total Creatine Kinase 79 U/L Creatine Kinase MB 3.4 ng/ml Creatine Kinase MB Ratio 4.3 Triglycerides Level 58 mg/dl Cholesterol Level 166 mg/dl HDL Cholesterol 61 mg/dl LDL Cholesterol, Calculated 93 mg/dl VLDL Cholesterol, Calculated 12 mg/dl Cholesterol/HDL Ratio 2.7 Osmolality 269 mOsm/kg Test 09/24/17 14:54 09/24/17 15:33 Creatine Kinase MB Ratio Assessment and Plan 86 yo female with sudden vision loss in left eye the day before presentation, also with left lower quadrant pain - Acute lacunar stroke: diagnosed on MRI brain today stroke order set utilized already on aspirin, will start Lipitor has paroxysmal atrial fibrillation, likely the etiology of stroke, embolic also has carotid atherosclerosis, not severe will consult neurology to see tomorrow vision is slowly improving, could follow up with eye doctor after discharge - Acute diverticulitis: multiple bouts over the years, has never required hospitalization continue Zosyn IV today, no abdominal pain, eating well vitals stable change to Augmentin prior to discharge - NSTEMI type II, demand myocardial ischemia troponin trending down, no EKG changes, no chest pain continue aspirin, Lopressor, Lisinopril, started on Lipitor - Hyponatremia: likely some SIADH from stress, pain give NSS at 80cc/hr, NaCl tablet, repeat Na in the AM - Paroxysmal atrial fibrillation: fully anticoagulated on Lovenox will d/c on Eliquis per cardiology rate controlled on Lopressor keep on tele, repeat labs tomorrow, follow up neurology consult, PT/OT ordered
[2017-09-24] MEDS ORDERED: PHARMACIST DISCHARGE MED REC CONSULT PRN (16:30)
[2017-09-24 19:53] VITALS: BP 133/69; PULSE 71; TEMP 37.2; O2SAT 93
[2017-09-24 23:44] VITALS: BP 122/64; PULSE 66; TEMP 37.1; O2SAT 96
[2017-09-25 03:39] VITALS: BP 136/69; PULSE 63; TEMP 36.7; O2SAT 98
[2017-09-25] MEDS: PIPERACILL/TAZOBAC IV 3.375 GM in DEXTROSE 5% 100ML 100 ML IV SCH (05:42)
[2017-09-25 06:47] LABS: BASO % 0.5 %; BASO ABS # 0.04 K/uL (0-0.2); EOS % 0.9 %; EOS ABS # 0.07 K/uL (0-0.5); HEMATOCRIT 33.7 % (37-47); HEMOGLOBIN 11.4 g/dL (12.0-16.0); IG# 0.01 K/uL (0.00-0.02); LYMPH % 42.2 %; LYMPH ABS # 3.46 K/uL (1.2-3.4); MEAN CELL VOLUME 86.4 fL (80-100); MEAN CORPUSCULAR HEMOGLOBIN 29.2 pg (25-34); MEAN CORPUSCULAR HGB CONC 33.8 g/dl (32-36); MONO % 9.4 %; MONO ABS # 0.77 K/uL (0.11-0.59); NEUT % 46.9 %; NEUT ABS # 3.85 K/uL (1.4-6.5); PLATELET COUNT 262 K/uL (130-400); RED CELL DISTRIBUTION WIDTH SD 41.5 fL (36.4-46.3)
[2017-09-25 07:25] LABS: CALCIUM 8.8 mg/dl (8.5-10.1); CREATININE 0.94 mg/dl (0.60-1.20); POTASSIUM 3.8 mmol/L (3.5-5.1)
[2017-09-25 07:44] VITALS: BP 164/74; PULSE 63; TEMP 37.1; O2SAT 96
[2017-09-25] MEDS ORDERED: SODIUM CHLORIDE 1 GM TAB PO SCH (09:00)
[2017-09-25] MEDS ORDERED: ATORVASTATIN 20 MG TAB PO SCH (09:00)
[2017-09-25] MEDS: CHOLECALCIFEROL 1000 INTER.UNIT TAB PO SCH (09:10)
[2017-09-25] MEDS: METOPROLOL TARTRATE 25 MG TAB PO SCH (09:11)
[2017-09-25] MEDS: DICYCLOMINE HCL 10 MG CAP PO SCH (09:11)
[2017-09-25] MEDS: PSYLLIUM 58.6% PWD PACK S\\F PO SCH (09:11)
[2017-09-25] MEDS: MULTIVITAMIN TAB PO SCH (09:11)
[2017-09-25] MEDS: LACTOBACILLUS ACIDOPHILUS (FLORANEX) TAB PO SCH (09:11)
[2017-09-25] MEDS: ASPIRIN 81 MG ECTAB PO SCH (09:11)
[2017-09-25] MEDS: LISINOPRIL 5 MG TAB PO SCH (09:11)
--- NOTE | 2017-09-25 09:21 | Neurology Consultation ---
Neurology Consultation Date of Consultation: Sep 25, 2017. Attending Physician: Seth Arevalo D.O. Primary Care Physician: Ulysses Price M.D. Reason for Consultation: Stroke History of Present Illness Source: patient, hospital records The patient is an 86-year-old female with a chief complaint of vision loss affecting the left eye that began acutely 2 mornings ago. She complains of near complete loss of vision with the left eye only, without associated pain. Her vision has markedly improved since symptom onset. She has never had a similar episode in the past. Her case was discussed with Ophthalmology, Dr. Downey, while in the emergency department. 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 She continues to deny any vision loss with the right eye. Although there is no proven treatment for central retinal artery occlusion, she was appropriately admitted to the hospital for a stroke evaluation. Her past medical history is notable for atrial fibrillation for which she has declined anticoagulation previously. Her troponin has been mildly elevated and she has been seen by Cardiology who suspects enzyme leak due to demand ischemia without evidence of an acute coronary syndrome.She was notably hypertensive initially although her blood pressure has significantly improved. She is agreeable to starting anticoagulation. Currently, the patient continues to deny headache or ocular pain. She believes the vision with her left eye is nearly back to baseline although she seems to be aware of some mild difficulty with altitudinal vision with the left eye only. She denies any weakness or sensory loss of the limbs. She denies chest pain or palpitations. She denies myalgias. She has been complaining of crampy abdominal pain and has a history of diverticulitis for which there appears to be an acute component on a recently completed CT of the abdomen and pelvis. A CT of the head completed in the emergency department revealed chronic small vessel disease and was otherwise negative for hemorrhage or other acute process. Electrocardiogram revealed a normal sinus rhythm, 76 beats per minute. A carotid ultrasound was negative for hemodynamically significant stenosis. I reviewed the images as well as the radiologist's interpretation of the follow-up brain MRI. There is evidence of multiple punctate infarcts in several different vascular territories. There are infarcts noted within the left cerebellar hemisphere, right occipital parietal junction, left basilio radiata, left subinsular cortex, and right temporal lobe per my review of the diffusion-weighted imaging. There is evidence of chronic small vessel ischemic disease on FLAIR and T2 sequences. Past Medical/Surgical History Medical Problems: (1) Acute diverticulitis Status: Acute (2) Elevated troponin Status: Acute (3) New onset a-fib Status: Acute (4) Syncope Status: Acute (5) Vision loss, left eye Status: Acute Family History Noncontributory given patient's advanced age Social History Smokeless Tobacco Use: No Alcohol Use: none Drug Use: none Marital Status: Housing Status: lives with family Occupation Status: retired Allergies Coded Allergies: Cephalexin (Unverified Allergy, Severe, RASH, 06/08/17) Ibuprofen (Unverified Allergy, Intermediate, CONGESTION, S.O.B, 06/08/17) Current Inpatient Medications Current Inpatient Medications Medications (Trade) Dose Ordered Sig/Tito Route Start Time Stop Time Status Last Admin Dose Admin Ioversol (Optiray 320) 100 ml UD PRN IV 09/23/17 20:15 09/27/17 20:14 Acetaminophen (Tylenol Tab) 650 mg Q4H PRN PO 09/23/17 23:00 10/23/17 22:59 Al Hydrox/Mg Hydrox/Simethicone (Maalox Max Susp) 15 ml Q4H PRN PO 09/23/17 23:00 10/23/17 22:59 Magnesium Hydroxide (Milk Of Magnesia Susp) 30 ml Q12H PRN PO 09/23/17 23:00 10/23/17 22:59 Nitroglycerin (Nitrostat Tab) 0.4 mg UD PRN SL 09/23/17 23:00 10/23/17 22:59 Aspirin (Ecotrin Tab) 81 mg DAILY PO 09/24/17 09:00 10/24/17 08:59 09/24/17 07:28 81 MG Buspirone HCl (Buspar Tab) 5 mg DAILY PO 09/24/17 09:00 10/24/17 08:59 09/24/17 07:28 5 MG Dicyclomine HCl (Bentyl Cap) 10 mg BID PO 09/24/17 09:00 10/24/17 08:59 09/24/17 20:08 10 MG Lisinopril (Zestril Tab) 5 mg DAILY PO 09/24/17 09:00 10/24/17 08:59 09/24/17 07:30 5 MG Metoprolol Tartrate (Lopressor Tab) 25 mg BID PO 09/24/17 09:00 10/24/17 08:59 09/24/17 20:08 25 MG Multivitamins (Multivitamin Tab) 1 tab DAILY PO 09/24/17 09:00 10/24/17 08:59 09/24/17 07:31 1 TAB Psyllium Hydrophilic Mucilloid (Metamucil Powder) 1 pkt DAILY PO 09/24/17 09:00 10/24/17 08:59 09/24/17 07:32 1 PKT Cholecalciferol (Vitamin D Tab) 6,000 inter.unit QAM PO 09/24/17 09:00 10/24/17 08:59 09/24/17 07:31 6,000 INTER.UNIT Lactobacillus Acidophilus (Floranex Tab) 1 tab QAM PO 09/24/17 09:00 10/24/17 08:59 09/24/17 07:30 1 TAB Ondansetron HCl (Zofran Odt) 8 mg Q6H PRN PO 09/23/17 23:00 10/23/17 22:59 Piperacillin Sod/ Tazobactam Sod 3.375 gm/Dextrose 115 ml @ 28.75 mls/ hr Q8H IV 09/24/17 06:00 10/04/17 05:59 09/25/17 05:42 28.75 MLS/HR Miscellaneous Information (Consult) 1 ea UD PRN N/A 09/23/17 23:00 10/23/17 22:59 Sodium Chloride 1,000 ml @ 80 mls/hr [id number] IV 09/24/17 09:15 10/24/17 09:14 09/24/17 22:36 80 MLS/HR Sodium Chloride (Sodium Chloride Tab) 1 gm DAILY PO 09/25/17 09:00 10/25/17 08:59 Enoxaparin Sodium (Lovenox Inj) 60 mg Q12@1100,2300 SQ 09/24/17 12:15 10/24/17 12:14 09/24/17 22:34 60 MG Gadobutrol (Gadavist) 6 mmol UD PRN IV 09/24/17 15:00 09/28/17 14:59 Miscellaneous Information (Pharmacist Discharge Med Rec Consult) 1 ea UD PRN N/A 09/24/17 16:30 10/24/17 16:29 Atorvastatin Calcium (Lipitor Tab) 20 mg QAM PO 09/25/17 09:00 10/25/17 08:59 Review of Systems Constitutional: No fever chills Eyes: As per history of present illness Ears nose and throat: No vertigo. Patient does complain of chronic hearing loss. Cardiovascular: No chest pain or palpitations Respiratory: No coughing or shortness of breath Gastrointestinal: As per history of present illness Neurological: As per history of present illness Psychiatric: Mild anxiety, stable on medication Hematologic: No bruising or bleeding A full 10 point review of systems was obtained from this patient with pertinent positives and negatives described in the history of present illness and otherwise listed above. All remaining systems were reviewed and are negative. Physical Exam Vital Signs (Past 24 Hrs): Date Time Temp Pulse Resp B/P (MAP) Pulse Ox O2 Delivery O2 Flow Rate FiO2 09/25/17 07:44 37.1 63 18 164/74 (104) 96 Room Air 09/25/17 04:00 Room Air 09/25/17 03:39 36.7 63 16 136/69 (91) 98 Room Air 09/24/17 23:59 Room Air 09/24/17 23:44 37.1 66 16 122/64 (83) 96 Room Air 09/24/17 20:00 Room Air 09/24/17 19:53 37.2 71 16 133/69 (90) 93 Room Air 09/24/17 15:47 Room Air 09/24/17 11:32 Room Air 09/24/17 11:20 37.0 66 20 122/73 (89) 94 Room Air The patient is a well-developed, well-nourished elderly female. She is sitting up comfortably in bed. She is alert and fully oriented. Recent and remote memory intact. Attention and concentration normal. Patient exhibits a normal spontaneous speech pattern as well as an age-appropriate fund of knowledge. She is able to name objects and repeat phrases. The patient appears to have an altitudinal visual field defect affecting the left eye only, outer quadrant primarily. No visual field defect with the right eye to confrontation testing. Pupils equal round reactive to light and accommodation. Eye movements normal. There is no nystagmus. Facial sensation intact. There is normal facial symmetry and strength. No facial droop. There is diminished hearing to finger rub bilaterally. Palate elevates to midline. Shoulder shrug strength intact. Tongue protrudes to midline. Sensation intact to light touch, temperature, vibration, and proprioception for all 4 limbs. Deep tendon reflexes are intact and symmetrical for the arms and legs. Plantar responses downgoing bilaterally. There is no dysdiadochokinesia or dysmetria with [id number] or heel to villatoro bilaterally. Ophthalmoscopic examination reveals an area of retinal pallor inferior to the left optic nerve. Otherwise, there is no papilledema or hemorrhage to either eye. Carotid pulses intact bilaterally, no bruits to auscultation. Gait and station normal. Patient exhibits normal muscle strength and tone for the arms and legs bilaterally. No atrophy. No abnormal movements observed. Laboratory Results Past 24 Hours: 09/25/17 06:22 Red Blood Count 3.90, Mean Corpuscular Volume 86.4, Mean Corpuscular Hemoglobin 29.2, Mean Corpuscular Hemoglobin Concent 33.8, Mean Platelet Volume 9.0, Neutrophils (%) (Auto) 46.9, Lymphocytes (%) (Auto) 42.2, Monocytes (%) (Auto) 9.4, Eosinophils (%) (Auto) 0.9, Basophils (%) (Auto) 0.5, Neutrophils # (Auto) 3.85, Lymphocytes # (Auto) 3.46, Monocytes # (Auto) 0.77, Eosinophils # (Auto) 0.07, Basophils # (Auto) 0.04 09/25/17 06:22 Test 09/24/17 09:23 09/24/17 15:33 09/25/17 05:49 09/25/17 06:22 Osmolality 269 mOsm/kg (280-300) Total Creatine Kinase 70 U/L (26-192) Creatine Kinase MB 2.3 ng/ml (0.5-3.6) Creatine Kinase MB Ratio 3.3 (0-3.0) Troponin I 1.340 ng/ml (0-0.045) Urine Osmolality 179 mOms/kg (500-800) White Blood Count 8.20 K/uL (4.8-10.8) Red Blood Count 3.90 M/uL (4.2-5.4) Hemoglobin 11.4 g/dL (12.0-16.0) Hematocrit 33.7 % (37-47) Mean Corpuscular Volume 86.4 fL (80-100) Mean Corpuscular Hemoglobin 29.2 pg (25-34) Mean Corpuscular Hemoglobin Concent 33.8 g/dl (32-36) Platelet Count 262 K/uL (130-400) Mean Platelet Volume 9.0 fL (7.4-10.4) Neutrophils (%) (Auto) 46.9 % Lymphocytes (%) (Auto) 42.2 % Monocytes (%) (Auto) 9.4 % Eosinophils (%) (Auto) 0.9 % Basophils (%) (Auto) 0.5 % Neutrophils # (Auto) 3.85 K/uL (1.4-6.5) Lymphocytes # (Auto) 3.46 K/uL (1.2-3.4) Monocytes # (Auto) 0.77 K/uL (0.11-0.59) Eosinophils # (Auto) 0.07 K/uL (0-0.5) Basophils # (Auto) 0.04 K/uL (0-0.2) RDW Standard Deviation 41.5 fL (36.4-46.3) RDW Coefficient of Variation 13.0 % (11.5-14.5) Immature Granulocyte % (Auto) 0.1 % Immature Granulocyte # (Auto) 0.01 K/uL (0.00-0.02) Prothrombin Time 10.4 SECONDS (9.0-12.0) Prothromb Time International Ratio 1.0 (0.9-1.1) Activated Partial Thromboplast Time 41.0 SECONDS (21.0-31.0) Partial Thromboplastin Ratio 1.6 Anion Gap 6.0 mmol/L (3-11) Est Creatinine Clear Calc Drug Dose 35.5 ml/min Estimated GFR () 62.8 Estimated GFR (Non- 54.2 BUN/Creatinine Ratio 15.2 (10-20) Calcium Level 8.8 mg/dl (8.5-10.1) Magnesium Level 2.2 mg/dl (1.8-2.4) Impression This is an 86-year-old female who presents with sudden onset painless vision loss to the left eye which at this point primarily affects the upper half of her visual field. She does have some inferior retinal pallor with direct ophthalmoscopic examination. I agree that her presentation is most suggestive of a branch retinal artery occlusion as suggested by Dr. Downey, ophthalmology. However, her brain MRI also reveals multiple punctate infarcts in several different vascular territories which would suggest a primary cardioembolic event , especially in light of her history of atrial fibrillation. The patient has declined anticoagulation previously. However, at this point she is agreeable to starting an anticoagulant after discussing her case further with Dr. Pappas, cardiology. I agree with anticoagulation in this patient. Furthermore, there is no evidence of significant ipsilateral carotid disease that would otherwise explain her retinal stroke. She does not have signs or symptoms suggestive of temporal arteritis. Her elevated sedimentation rate is probably related to acute diverticulitis as potentially suggested on her CT of the abdomen and pelvis. I would not pursue temporal artery biopsy or treatment with high-dose corticosteroids at this time. Plan As above, I agree with anticoagulation for this patient. Of course, she will require monitoring for development of any bleeding complications. She will need an outpatient ophthalmology evaluation to assess her optic nerve, retina, and visual shannon. She will need some additional outpatient follow-up with either her primary care physician or GI for her diverticulitis. I have no further immediate recommendations for this patient. Please contact me if I may be of further assistance.
[2017-09-25 10:04] VITALS: BP 151/65; PULSE 61; TEMP 36.7; O2SAT 96
[2017-09-25] MEDS ORDERED: AMOX875T PO (10:51)
[2017-09-25] MEDS ORDERED: LPT20 PO (10:51)
[2017-09-25] MEDS ORDERED: APIX1TAB3 PO (10:51)
[2017-09-25] MEDS ORDERED: APIXABAN 2.5 MG TAB PO ONE (11:00)
--- NOTE | 2017-09-25 11:03 | Discharge Instructions ---
Discharge Instructions Date of Service Sep 25, 2017. Admission Reason for Admission: Nstemi, Initial Episode Of Care; Vision Loss Discharge Discharge Diagnosis / Problem: Acute lacunar stroke, atrial fibrillation, diverticulitis Discharge Goals Goal(s): Decrease discomfort, Improve function, Diagnostic testing (follow up with ophthomologist) Activity Recommendations Activity Limitations: per Instructions/Follow-up section Driving or Machine Use: no driving due to vision loss . Instructions / Follow-Up Instructions / Follow-Up Medications: - ELIQUIS: 5mg twice a day for anticoagulation, protects against stroke with atrial fibrillation - LIPITOR: statin, helps lower cholesterol but also stabilize plaques in arteries, protects against strokes - AUGMENTIN: take for 7 more days for diverticulitis Small lacunar stroke, causing vision loss recommendations per neurology are for aspirin, Eliquis, Lipitor should follow up with ophthomologist within a week to assess retina, retinal artery can follow up with neurology in one month likely embolic due to atrial fibrillation Diverticulitis: no pain, eating well, moving bowels complete course of Augmentin on discharge Paroxysmal atrial fibrillation: heart rates controlled on metoprolol will now be anticoagulated on Eliquis Hyponatremia: resolving, due to poor solute intake FOLLOW UP - Dr. Price in one week, please call for hospital follow up appointment - Dr. Terry, neurologist, in neuro clinic in one month - Ophthomology within a week, nurse navigator will assist with this appointment Risk Factors for Stroke: You can reduce your chances of stroke by working with your medical provider to adopt a healthy lifestyle. Some specific ways to lower your chance of stroke are: * If you are a smoker, now is the time to stop smoking cigarettes * If you are diabetic, improve the control of your blood sugars * Avoid excessive amounts of alcohol * Control high blood pressure * Lose weight if you are overweight * Be sure to lead an active lifestyle * Eat a healthy diet low in salt, cholesterol and fat You should know about other risk factors for stroke that you are unable to control. These include: * Age 55 years or older * Male gender * Certain racial groups: , or / * Family History of Stroke, Mini stroke or Heart Attack * Sickle Cell Disease Follow Up: It is important for you to keep your follow up appointments with your medical provider. Current Hospital Diet Patient's current hospital diet: AHA Diet (Heart Healthy) Discharge Diet Recommended Diet: AHA Diet (Heart Healthy) Pending Studies Studies pending at discharge: no Laboratory Results Hemoglobin A1c Test 09/24/17 06:37 Range/Units Estimated Average Glucose 114 mg/dl Hemoglobin A1c 5.6 4.5-5.6 % Lipid Panel Test 09/24/17 06:37 Range/Units Triglycerides Level 58 0-150 mg/dl Cholesterol Level 166 0-200 mg/dl HDL Cholesterol 61 mg/dl Cholesterol/HDL Ratio 2.7 LDL Cholesterol, Calculated 93 mg/dl Medical Emergencies . Who to Call and When: Medical Emergencies: Call 911 immediately if you experience any of the following warning signs and symptoms of Stroke: * Sudden numbness or weakness of the face, arm or leg, especially on one side of the body * Sudden confusion, trouble speaking or understanding * Sudden trouble seeing in one or both eyes * Sudden trouble walking, dizziness, loss of balance or coordination * Sudden severe headache with no cause Do not delay calling 911 if you experience any warning signs or symptoms of a stroke. Delay in seeking medical attention may affect what treatments can be given to you. . Non-Emergent Contact Non-Emergency issues call your: Primary Care Provider, Neurologist, Learning Disabilities Resource Teacher Call Non-Emergent contact if: you have any medication questions . . "Provider Documentation" section prepared by Seth Arevalo. . Stroke Core Measures Reason no t-PA for Stroke: Treatment not indicated Reason no antithrom by day 2: Treatment provided - N/A Reason no antithrom at D/C: Treatment provided - N/A Reason no statin at D/C: Treatment provided - N/A Reason no anticoag w/a fib: Treatment provided - N/A [place] Drug Monitoring Program Search Results: no issues identified
[2017-09-25 11:21] VITALS: BP 164/74; PULSE 63; TEMP 37.1; O2SAT 96
--- NOTE | 2017-09-25 14:31 | Pharmacy Progress Note ---
Pharmacist Stroke Counseling Date of Service Sep 25, 2017. Scope Pharmacy has been consulted to provide medication discharge counseling for this patient admitted with ischemic stroke/hemorrhagic stroke/ transient ischemic attack as per the Pharmacist Discharge Counseling for Stroke Patients Protocol. Medications on Discharge New Medications: Amoxicillin & Pot Clavulanate (Augmentin 875-125 mg) 1 Tab Tab 875 MG PO BID, #14 TAB Apixaban (Eliquis) 5 Mg Tab 5 MG PO BID for 30 Days, #60 TAB 3 Refills Atorvastatin (Lipitor) 20 Mg Tab 20 MG PO QAM, #30 TAB 3 Refills Continued Medications: Aspirin (Aspirin Ec) 81 Mg Tab 81 MG PO DAILY Buspirone Hcl (Buspirone Hcl) 5 Mg Tab 5 MG PO DAILY PRN for Anxiety for 30 Days Cholecalciferol (Vitamin D3) 2,000 Unit Cap 6000 UNITS PO DAILY Dicyclomine Hcl (Dicyclomine Hcl) 10 Mg Cap 10 MG PO BID Lisinopril (Zestril) 5 Mg Tab 5 MG PO DAILY, TAB Metoprolol Tartrate (Lopressor) (Lopressor) 25 Mg Tab 25 MG PO BID, TAB Multivitamin (Multivitamin) Tab 1 TAB PO DAILY, TAB Probiotic Product (Probiotic) 1 Cap Cap 1 CAP PO DAILY Psyllium (Fiber Laxative) 0.52 Gm Cap 0.52 CAP PO DAILY Action The above medications, specifically ones for stroke treatment/prophylaxis, have been reviewed in detail with the patient and/or patient patient registration representative(s) prior to discharge. This includes indication, common adverse reactions, drug interactions, and medication administration. Medication counseling has been employed using the teach-back method to ensure understanding. Outcome The patient and/or patient patient registration representative(s) have demonstrated understanding of the medications. Please note, they are aware that the pharmacist will call them within 72 hours post-discharge to confirm that the appropriate medications are being taken and answer any further medication related questions the patient might have at that time. Contact information Individual to be contacted: Roxy Relationship to patient (if applicable): daughter Phone number: Best time to call: anytime Additional comments: Spoke w/ Ms. Orozco about her eliquis and other home medications. She exhibited a strong understanding of the dose and frequency of her eliqius. Thank you for allowing pharmacy to be involved in the care of this patient. Please call [phone] or [phone] with any additional questions
--- NOTE | 2017-09-25 16:41 | ECHOCARDIOGRAM REPORT ---
*NOTICE TO RECEIVING [employer] This information is strictly Confidential and protected under [place] law. [place] law prohibits you from making any further disclosure of this information unless further disclosure is expressly permitted by the written consent of the person to whom it pertains or is authorized by law. A general authorization for the release of medical or other information is not sufficient for this purpose. Hospital accepts no responsibility if the information is made available to any other person, INCLUDING THE PATIENT. Interpretation Summary * Name: YESSICA PAREDES I Study Date: 09/25/2017 07:21 AM BP: 134/74 mmHg * Patient Location: [facility] HR: 68 * : 1930 (M/d/yyyy) Gender: Female Height: 62 in * Age: 86 yrs Ethnicity: [place] Weight: 134 lb * Ordering Physician: SALOMON JOEL MD * Performed By: Kay Pond RCS * * Reason For Study: CEREBRAL ISCHEMIA / EMBOLUS / NSTEMI * BSA: 1.6 m2 * -- Conclusions -- * 1. Normal LV size. Mild concentric LVH. * 2. Normal LV systolic function. LVEF 60-65%. No regional wall motion abnormalities. * 3. Normal RV size and function. * 4. Grade 2 diastolic dysfunction. * 5. Systolic anterior motion of mitral leaflet with eccentric moderate mitral regurgitation * 6. Mild pulmonary hypertension. Estimated PASP 40-45 mmHg * 7. Aortic valve sclerosis without stenosis. * 8. Negative saline contrast study for interatrial shunt * 9. Compared with prior study on 06/08/2017: No significant change Procedure Details * A complete two-dimensional transthoracic echocardiogram was performed (2D, M-mode, Doppler and color flow Doppler). * A saline contrast injection was performed to assess for cardiac shunting. * The injection was performed through an intravenous line in the right arm. * The attending nurse who injected the saline contrast was ELSA HASTINGS, SUDHA. * A total of 20 cc of agitated saline was given. Left Ventricle * The left ventricle is grossly normal size. * There is mild concentric left ventricular hypertrophy. * Ejection Fraction = 60-65%. * No regional wall motion abnormalities noted. Right Ventricle * The right ventricle is grossly normal size. * The right ventricular systolic function is normal as assessed by tricuspid annular plane systolic excursion (TAPSE) (normal >1.5 cm). Atria * The left atrium is mildly dilated. * Right atrial size is normal. * Injection of contrast documented no interatrial shunt. Mitral Valve * There is moderate mitral annular calcification. * There is systolic anterior motion of the mitral valve. * There is no mitral valve stenosis. * There is moderate mitral regurgitation. * The mitral regurgitant jet is eccentrically directed. Tricuspid Valve * The tricuspid valve is not well visualized, but is grossly normal. * There is mild tricuspid regurgitation. * Right ventricular systolic pressure is elevated at 40-50mmHg. Aortic Valve * Aortic valve sclerosis mild, without significant aortic valvular stenosis. * The aortic valve is trileaflet. * No hemodynamically significant valvular aortic stenosis. * There is no significant aortic regurgitation. Pulmonic Valve * The pulmonary valve is inadequately visualized, but the Doppler data is adequate for interpretation. * There is no pulmonic valvular stenosis. * Mild pulmonic valvular regurgitation. Great Vessels * There is aortic root sclerosis/calcification. * The aortic root and proximal ascending aorta are normal sized. * IVC < 2.1, no change with respiration. Est RA 8 mmHg. Left Ventricular Diastolic Function * Diastolic dysfunction, Grade II (pseudonormalization pattern). MMode 2D Measurements and Calculations IVSd 1.3 cm IVSs 1.1 cm LVIDd 3.1 cm LVIDs 2.5 cm LVPWd 1.2 cm LVPWs 1.3 cm IVS/LVPW 1.1 FS 18.2 % EDV(Teich) 38.3 ml ESV(Teich) 23.4 ml EF(Teich) 38.9 % EDV(cubed) 30.2 ml ESV(cubed) 16.5 ml EF(cubed) 45.2 % % IVS thick -12.28 % % LVPW thick 8.9 % LV mass(C)d 117.7 grams LV mass(C)dI 73.0 grams/m\S\2 LV mass(C)s 86.8 grams LV mass(C)sI 53.9 grams/m\S\2 SV(Teich) 14.9 ml SI(Teich) 9.2 ml/m\S\2 SV(cubed) 13.6 ml SI(cubed) 8.5 ml/m\S\2 Ao root diam 2.2 cm Ao root area 4.0 cm\S\2 ACS 1.4 cm LA dimension 4.3 cm LA/Ao 1.9 LVOT diam 2.0 cm LVOT area 3.3 cm\S\2 LVAd ap4 16.9 cm\S\2 LVLd ap4 5.7 cm EDV(MOD-sp4) 40.9 ml EDV(sp4-el) 42.4 ml LVAs ap4 13.2 cm\S\2 LVLs ap4 5.6 cm ESV(MOD-sp4) 25.7 ml ESV(sp4-el) 26.2 ml EF(MOD-sp4) 37.3 % EF(sp4-el) 38.2 % SV(MOD-sp4) 15.2 ml SI(MOD-sp4) 9.4 ml/m\S\2 SV(sp4-el) 16.2 ml SI(sp4-el) 10.0 ml/m\S\2 Doppler Measurements and Calculations MV E max jase 120.8 cm/sec MV A max jase 89.0 cm/sec MV E/A 1.4 MV P1/2t max jase 141.2 cm/sec MV P1/2t 76.3 msec MVA(P1/2t) 2.9 cm\S\2 MV dec slope 542.1 cm/sec\S\2 MV dec time 0.22 sec MR max jase 592.9 cm/sec MR max PG 140.7 mmHg PA V2 max 79.2 cm/sec PA max PG 2.5 mmHg PI max jase 184.0 cm/sec PI max PG 13.5 mmHg PI dec slope 266.7 cm/sec\S\2 PI P1/2t 202.1 msec TR max jase 310.2 cm/sec
--- NOTE | 2017-09-27 15:05 | Pharmacy Progress Note ---
Pharmacist Post D/C Phone Note Medications Dose Route/Sig Max Daily Dose Days Date Category Augmentin 875-125 mg (Amoxicillin & Pot Clavulanate) 1 Tab Tab 875 Mg PO BID 09/25/17 Rx Eliquis (Apixaban) 5 Mg Tab 5 Mg PO BID 30 09/25/17 Rx Lipitor (Atorvastatin Calcium) 20 Mg Tab 20 Mg PO QAM 09/25/17 Rx Dicyclomine Hcl 10 Mg Cap 10 Mg PO BID 09/23/17 Reported Buspirone Hcl 5 Mg Tab 5 Mg PO DAILY PRN 30 09/23/17 Reported Fiber Laxative (Psyllium) 0.52 Gm Cap 0.52 Cap PO DAILY 09/23/17 Reported Aspirin Ec (Aspirin) 81 Mg Tab 81 Mg PO DAILY 09/23/17 Reported Probiotic (Probiotic Product) 1 Cap Cap 1 Cap PO DAILY 09/23/17 Reported Lopressor (Metoprolol Tartrate) 25 Mg Tab 25 Mg PO BID 09/23/17 Reported Zestril (Lisinopril) 5 Mg Tab 5 Mg PO DAILY 09/23/17 Reported Vitamin D3 (Cholecalciferol) 2,000 Unit Cap 6,000 Units PO DAILY 06/08/17 Reported Multivitamin (Multivitamins) Tab 1 Tab PO DAILY 06/08/17 Reported Date of phone call: Sep 27, 2017. Individual with whom pharmacist spoke to: Roxy (patient's daughter) The following questions were reviewed during the phone call with responses listed below each: Can you tell me the medications that you are currently taking as well as when and how you take each medication? - The patient's daughter was able to tell me the current medications. She is the one who cares for and manages her medications. When have you missed any doses of your medications? - no missed doses reported What side effects are you having from your medications? - the daughter did note that her mother was tired and had some confusion when she first got home. However, now she is feeling much better. She is also experiencing some diarrhea/gas with the augmentin and I recommended that she take it with food and also take a probiotic/yogurt while on antibiotic What questions do you have about your medications? - The daughter did seemed concerned about her mother going back into atrial fibrillation. She has been in and out of afib in the past. I told her that it is important to always follow up with her physician if she is having shortness of breath/dizziness/extreme tiredness and to also follow with the doctor routinely to assess for afib. She has also questioned the Eliquis dosing ( someone had told her that it is sometimes adjusted). I informed her that this dosing was what the doctor had recommended and that it is appropriate. What problems are you having obtaining your medications? - She does not note any issues with obtaining the medications/no concerns today When is your next appointment with your primary care doctor? - The patient will be seeing her PCP this coming Saturday; I recommended that she bring an updated list of her medications Additional comments: - Daughter was very pleasant to talk with today. She manages her daughter's medications at home. Patient seems to be doing very well. As per the Pharmacist Discharge Counseling for Stroke Patients Protocol, this phone call has been completed within 72 hours of discharge. Thank you for allowing us to be involved in the care of this patient.
--- NOTE | 2017-10-01 10:38 | Discharge Summary ---
Discharge Summary Date of Service Sep 25, 2017. Discharge Summary Admission Date: Sep 23, 2017 at 22:54 Discharge Date: Sep 25, 2017 Discharge Disposition: Home with services Principal Diagnosis: Acute lacunar stroke, ischemic Problems/Secondary Diagnoses: Acute diverticulitis NSTEMI Paroxysmal atrial fibrillation Hyponatremia Immunizations: Have You Had Influenza Vaccine: Unknown History of Tetanus Vaccine?: Unknown History of Pneumococcal: Unknown History of Hepatitis B Vaccine: Unknown Procedures: none Consultations: Neurology Cardiology Medication Reconciliation New Medications: Amoxicillin & Pot Clavulanate (Augmentin 875-125 mg) 1 Tab Tab 875 MG PO BID, #14 TAB Apixaban (Eliquis) 5 Mg Tab 5 MG PO BID for 30 Days, #60 TAB 3 Refills Atorvastatin (Lipitor) 20 Mg Tab 20 MG PO QAM, #30 TAB 3 Refills Continued Medications: Aspirin (Aspirin Ec) 81 Mg Tab 81 MG PO DAILY Buspirone Hcl (Buspirone Hcl) 5 Mg Tab 5 MG PO DAILY PRN for Anxiety for 30 Days Cholecalciferol (Vitamin D3) 2,000 Unit Cap 6000 UNITS PO DAILY Dicyclomine Hcl (Dicyclomine Hcl) 10 Mg Cap 10 MG PO BID Lisinopril (Zestril) 5 Mg Tab 5 MG PO DAILY, TAB Metoprolol Tartrate (Lopressor) (Lopressor) 25 Mg Tab 25 MG PO BID, TAB Multivitamin (Multivitamin) Tab 1 TAB PO DAILY, TAB Probiotic Product (Probiotic) 1 Cap Cap 1 CAP PO DAILY Psyllium (Fiber Laxative) 0.52 Gm Cap 0.52 CAP PO DAILY Discharge Exam Patient feeling quite well on the day of discharge. Eating well, no LLQ pain, no diarrhea. Vision slowly improving in left eye but definitely not back to baseline. No other issues Review of Systems: Constitutional: No fever, No chills, No sweats, No weight loss, No weakness , No fatigue, No problem reported Eyes: + problem reported (left eye poor visual acuity, otherwise normal), No eye pain, No redness, No discharge ENT: No hearing loss, No unusual epistaxis, No nasal symptoms, No sore throat, No tinnitus, No dental problems, No trouble swallowing, No problem reported Respiratory: No cough, No sputum, No wheezing, No shortness of breath, No dyspnea on exertion, No dyspnea at rest, No hemoptysis, No problem reported Cardiovascular: No chest pain, No orthopnea, No PND, No edema, No claudication, No palpitations, No problem reported Abdomen: No pain, No nausea, No vomiting, No diarrhea, No constipation, No GI bleeding, No problem reported Musculoskeletal: No joint pain, No muscle pain, No swelling, No calf pain, No problem reported Genitourinary - Female: No dysuria, No urinary frequency, No urinary urgency , No urinary incontinence, No urinary retention, No hematuria Neurologic: No memory loss, No paralysis, No weakness, No numbness/tingling , No vertigo, No balance problems, No problem reported Psychiatric: No depression symptoms, No anhedonism, No anxiety, No insomnia , No substance abuse, No problem reported Endocrine: No fatigue, No excessive thirst, No excessive urination, No problem reported Hematologic / Lymphatic: No abnormal bleeding/bruising, No clotting problems , No swollen lymph nodes, No night sweats, No problem reported Integumentary: No rash, No itch, No new/changing skin lesions, No color change, No bleeding, No problem reported Physical Exam: General Appearance: WD/WN, no apparent distress Eyes: normal inspection, PERRL, EOMI, sclerae normal ENT: normal ENT inspection, hearing grossly normal, pharynx normal Neck: supple, no adenopathy, no JVD, trachea midline Respiratory/Chest: chest non-tender, lungs clear, normal breath sounds, no respiratory distress, no accessory muscle use Cardiovascular: regular rate, rhythm, no edema, no gallop, no JVD, no murmur , normal peripheral pulses Abdomen / GI: normal bowel sounds, non tender, soft, no organomegaly Extremities: normal inspection, no calf tenderness, normal capillary refill , no pedal edema, normal range of motion Neurologic/Psychiatric: architectural modeler II-XII nml as tested, no motor/sensory deficits , alert, normal mood/affect, normal reflexes, oriented x 3 Skin: normal color, warm/dry, no rash Lymphatic: no adenopathy Hospital Course 86 yo female with sudden vision loss in left eye the day before presentation, also with left lower quadrant pain - Acute lacunar stroke: diagnosed on MRI brain on 09/24 stroke order set utilized already on aspirin, will start Lipitor 20mg daily has paroxysmal atrial fibrillation, likely the etiology of stroke, embolic also has carotid atherosclerosis, not severe neurology recommends aspirin, Eliquis, Lipitor, will follow up in clinic vision is slowly improving, needs to follow up with ophthomologist soon after discharge - Acute diverticulitis: multiple bouts over the years, has never required hospitalization treated with Zosyn IV, no abdominal pain, no diarrhea, eating well treat with Augmentin BID for 7 more days after discharge - NSTEMI type II, demand myocardial ischemia troponin trending down, no EKG changes, no chest pain continue aspirin, Lopressor, Lisinopril, started on Lipitor no further work up per cardiology echo is normal - Hyponatremia: 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 Discharge Instructions Please refer to the electronic Patient Visit Report (Discharge Instructions) for additional information. Follow-Up PCP in one week Ophthomologist in several days for dedicated eye exam Neurology in one month Cardiology in several weeks Additional Copies To Ulysses Price M.D.; Ponce Terry M.D.; Jon Pappas M.D.
== END 2017-09-25 13:20 | disposition home or self-care (01) | DRG 64 ==
LOC: C.EDB 19:08 → C.2T 22:54 → ENRESERV 23:28 → C.2T 09-24 15:22
PROVIDERS: ADMIT Hospitalist; ATTEND Internal Medicine
DX: I63.8 Other cerebral infarction (principal); I21.A1 Myocardial infarction type 2; H34.12 Central retinal artery occlusion, left eye; E87.1 Hypo-osmolality and hyponatremia; K57.92 Diverticulitis of intestine, part unspecified, without perforation or abscess without bleeding; I48.0 Paroxysmal atrial fibrillation; I10 Essential (primary) hypertension; M19.90 Unspecified osteoarthritis, unspecified site; R79.89 Other specified abnormal findings of blood chemistry; I25.2 Old myocardial infarction; Z98.49 Cataract extraction status, unspecified eye; Z79.82 Long term (current) use of aspirin; Z88.6 Allergy status to analgesic agent; Z79.01 Long term (current) use of anticoagulants; Z82.49 Family history of ischemic heart disease and other diseases of the circulatory system

== ENCOUNTER → 2017-09-28 | Outpatient (CLI) | payer BC ==
[~2017-09-28] MED LIST changes: +AMOX875T PO; +APIX1TAB3 PO; +ASPI81TA28 PO; +BUSP5TAB59 PO; +DICY10CA12 PO; -LCTX PO; -LISI-461 PO; +LISI-729 PO; +LPT20 PO; +METO25TA56 PO; -METO50TA16 PO; +MISCCAP80 PO; +PSYL0.527 PO
== END | disposition home or self-care (01) ==
LOC: C.LAB 09:11
PROVIDERS: ATTEND Psychiatry & Neurology Neurology
DX: H34.10 Central retinal artery occlusion, unspecified eye (principal)

== ENCOUNTER → 2017-10-15 | Outpatient (CLI) | payer BC ==
[~2017-10-15] MED LIST changes: -AMOX875T PO
== END | disposition home or self-care (01) ==
LOC: C.LABPBG 10:45
PROVIDERS: ATTEND Internal Medicine Geriatric Medicine
DX: R10.9 Unspecified abdominal pain (principal); I48.0 Paroxysmal atrial fibrillation; H34.9 Unspecified retinal vascular occlusion